=== PATIENT | male | born 1980 | race Caucasian/White ===

== ENCOUNTER → 2019-09-20 14:21 | Outpatient (CLI) | payer MEDICARE, BC, SELFPAY ==
--- NOTE | 2019-09-20 14:21 | MR_ITS ---
PROCEDURE: MR HEAD/BRAIN WO/W CON CLINICAL INDICATION: evaluation of seizures Worsening seizures with headache COMPARISON: CT HEAD/BRAIN WO CON from 08/04/2019 TECHNIQUE: Routine multiplanar multi echo sequences are performed without and with gadolinium enhancement. FINDINGS: No midline shift, mass effect, intracranial hemorrhage, or hydrocephalus. No evidence of acute infarction. No enhancing lesions are evident. The cerebellopontine angles, cerebellum, and brainstem are unremarkable. There is normal rosales-white matter differentiation with no abnormal white matter signal intensity evident. The hippocampal gyri are unremarkable in the temporal horns are symmetric The pituitary, optic chiasm, corpus callosum, and craniocervical junction have an unremarkable appearance. No mastoid effusion or sinus air-fluid level. There is a small left paracentral disc protrusion or disc osteophyte complex at C3-C4 which may be better evaluated with C-spine MRI if clinically warranted. Incidental note is made small area of increased T1 and slight decrease T2 signal in the sphenoid sinus anteriorly and centrally at 1 cm consistent with a complex cyst. IMPRESSION: 1. Essentially negative MRI of the brain. No acute finding. 2. Small left paracentral disc protrusion suspected at C3-C4 Dictated by: Jose Pak MD 09/22/2019 08:25 Electronically signed by Jose Pak MD in [place] 09/22/2019 08:25
== END ==
PROVIDERS: PCP Emergency Medicine; Visit Provider Specialist
DX: R56.9 Unspecified convulsions (principal)
CPT/HCPCS: 70553; A9576

== ENCOUNTER → 2019-09-23 13:06 | Outpatient (POV) | payer MEDICARE, BC, SELFPAY | PROVIDERS: PCP Specialist; Visit Provider Specialist | DX: G40.909 Epilepsy, unspecified, not intractable, without status epilepticus (principal) | CPT/HCPCS: 95816 ==

== ENCOUNTER → 2019-10-10 16:14 | Outpatient (CLI) | payer MEDICARE, BC, SELFPAY ==
--- NOTE | 2019-10-10 16:21 | XR_ITS ---
PROCEDURE: XR CERVICAL SPINE W FLEX/EXT CLINICAL INDICATION: neck pain Posterior neck pain COMPARISON: No exams were available for comparison FINDINGS: Normal alignment. No acute fracture or dislocation. There is mild degenerative disc disease at C3-C4 with minimal foraminal narrowing from uncovertebral hypertrophy at this level on both sides. No evidence of cervical rib. No other significant anomaly. Flexion and extension views show no abnormal subluxation IMPRESSION: Mild degenerative disc disease C3-C4 Dictated by: Jose Pak MD 10/10/2019 16:47 Electronically signed by Jose Pak MD in [place] 10/10/2019 16:47
== END ==
PROVIDERS: PCP Emergency Medicine; Visit Provider Specialist
DX: M47.22 Other spondylosis with radiculopathy, cervical region (principal); M54.2 Cervicalgia
CPT/HCPCS: 72052

== ENCOUNTER 2019-11-01 15:59 | Emergency (ER) | payer MEDICARE, BC, SELFPAY ==
[2019-11-01 16:00] VITALS: BP 124/88; PULSE 97; RESP 18; TEMP 36.8; O2SAT 98; BMI 19.8
[2019-11-01 16:14] VITALS: BMI 21.5
--- NOTE | 2019-11-01 16:16 | CT_ITS ---
PROCEDURE: CT HEAD/BRAIN WO CON CLINICAL INDICATION: seizure COMPARISON: CT HEAD/BRAIN WO CON from 08/04/2019 TECHNIQUE: Axial images obtained. All CT scans at the facility use one or more dose reduction, viz: automated exposure control, ma/kV adjustment per patient size (including targeted exams where dose is matched to indication, i.e. head), or iterative reconstruction technique. FINDINGS: No midline shift, mass effect, intracranial hemorrhage, hydrocephalus, or extra-axial fluid collection is evident. The calvarium has an unremarkable appearance. No mastoid effusion. There is mild mucosal thickening of the sphenoid sinus on the left anteriorly and centrally. IMPRESSION: No acute intracranial finding Dictated by: Jose Pak MD 11/01/2019 16:50 Electronically signed by Jose Pak MD in [facility] 11/01/2019 16:50
[2019-11-01 16:48] LABS: Basophils # 0.1 K/mm3 (0-0.2); Eosinophils # 0.1 K/mm3 (0.0-0.4); Eosinophils % 1.3 % (0.1-12.0); Hemoglobin 16.2 g/dL (14.1-18.0); Lymphocytes # 3.9 K/mm3 (0.7-4.5); Lymphocytes % 36.1 % (10-50); Mean Corpuscular HGB Conc 34.5 g/dL (31.8-35.4); Mean Corpuscular Hemoglobin 31.1 pg (27.0-31.2); Mean Platelet Volume 9.4 fl (7.4-10.4); Monocytes # 0.6 K/mm3 (0.1-1.0); Monocytes % 5.6 % (1.7-9.3); Neutrophils # 6.1 K/mm3 (1.8-7.8); Platelet Count 249 K/mm3 (142-424); Red Blood Count 5.22 M/mm3 (4.60-6.20); Red Cell Distribution Width 13.6 % (11.5-17.5); White Blood Count 10.8 K/mm3 (4.8-10.8)
[2019-11-01 16:50] LABS: Chloride 102 mmol/L (98-107); Potassium 3.7 mmoL/L (3.5-5.1); Sodium 138 mmol/L (136-145)
[2019-11-01 16:53] LABS: Alanine Aminotransferase 20 U/L (12-78); Albumin Level 4.9 g/dl (3.5-5.0); Albumin/Globulin Ratio 1.6 (1.1-1.8); Alkaline Phosphatase 69 U/L (38-126); Anion Gap 13.7 mEq/L (5-15); Aspartate Amino Transferase 24 U/L (17-59); Bilirubin,Total 0.8 mg/dl (0.2-1.3); Blood Urea Nitrogen 7 mg/dl (9-20); Calcium 9.5 mg/dl (8.4-10.2); Carbon Dioxide 26 mmol/L (22.0-30.0); Creatinine Clearance Estimated 122 mL/min (50-200); Estimated Glomerular Filt Rate 109 ml/min (>60); GFR (African American) 132 ML/MIN (>60); Glucose 93 mg/dl (74-100); Total Protein,Serum 7.9 g/dl (6.3-8.2)
[2019-11-01 17:00] VITALS: BP 126/77; PULSE 94; O2SAT 100
--- NOTE | 2019-11-01 17:03 | HMH.EDSEIZ ---
ED Disposition Clinical Impression: Focal seizure Disposition: Home, Self-Care Condition on Discharge: Good Instructions: DI for Seizure (Not Epilepsy/Seizure Disorder), DI for Seizure Disorder -- Adult, DI for Seizure Disorder -- Child Referrals: Jesus Johnson MD [Primary Care Provider] - - Critical Care Critical Care Time: No Attestation: On 11/01/19, the high probability of a clinically significant, sudden or life threatening deterioration of the following system(s) required my full and direct attention, intervention and personal management. The time I documented below is in addition to time spent performing reported procedures but includes the following listed in this critical care notation. Medical Decision Making - Medical Records Medical records reviewed: Yes: I reviewed the patient's medical records. - Claudy Inquiry Pt receiving controlled substance: No Vital Signs: 11/01/19 16:00 Temperature 98.2 F Temperature Source Oral Pulse Rate [Right Radial] 97 H Respiratory Rate 18 Blood Pressure [Right Arm] 124/88 Blood Pressure Mean [Right Arm] 100 Blood Pressure Source [Right Arm] Automatic Cuff Blood Pressure Position [Right Arm] Sitting 02 Sat by Pulse Oximetry 98 Oxygen Delivery Method Room Air - Lab Data Lab results reviewed: Yes: I reviewed the patient's lab results. Lab Results 11/01/19 16:10: WBC 10.8, RBC 5.22, Hgb 16.2, Hct 47.0, MCV 90.0, MCH 31.1, MCHC 34.5, RDW 13.6, Plt Count 249, MPV 9.4, Neut % (Auto) 56.0, Lymph % (Auto) 36.1, [place] % (Auto) 5.6, Eos % (Auto) 1.3, Baso % (Auto) 1.0, Neut # (Auto) 6.1, Lymph # (Auto) 3.9, [place] # (Auto) 0.6, Eos # (Auto) 0.1, Baso # (Auto) 0.1 11/01/19 16:10: Sodium 138, Potassium 3.7, Chloride 102, Carbon Dioxide 26, Anion Gap 13.7, BUN 7 L, Creatinine 0.80, Estimated Creat Clear 122, Estimated GFR 109, Est GFR ( Amer) 132, Glucose 93, Calcium 9.5, Total Bilirubin 0.8, AST 24, ALT 20, Alkaline Phosphatase 69, Total Protein 7.9, Albumin 4.9, Globulin 3.0, Albumin/Globulin Ratio 1.6 Result diagrams: 11/01/19 16:10 11/01/19 16:10 Orders (Tests/Meds): ED MEDICATIONS Generic Name Dose Route Start Last Admin Trade Name David PRN Reason Stop Dose Admin Sodium Chloride 1,000 mls @ 999 mls/hr 11/01/19 16:30 11/01/19 16:46 Sod Chlor 0.9% 1000ml Bag IV 11/01/19 17:30 999 mls/hr .Q1H1M ELINOR Administration - CT Data CT Scan: Head Time Received: 17:[address] Reviewed: Yes: I have viewed the radiologist's interpretation Preliminary Findings: Normal/NAD Medical Decision Narrative: During patient's course in the ED he did not have any other seizure activity. Was uncertain whether or not this patient has pseudoseizures or seizures. Per EMS that when they picked him up he began shaking and as he was walking to the ambulance and said he was having a seizure also when he was placed in the ambulance when they did start an IV in his arm he did stop immediately from shaking and then afterwards he began to have possible pseudoseizures. Patient states he is been all on all different kinds of anticonvulsant medication over the several years and nothing seems to work. He also states that they also talked about possibly doing some sort of surgery may be a brain stimulator as well. Patient CT and labs are within normal limits patient is alert and oriented and is ready for discharge. Seizures HPI - General Chief Complaint: Seizure Stated Complaint: Seizures Time Seen by Provider: 11/01/19 17:03 Mode of Arrival: EMS Source of Information: Patient Limitations: No Limitations Description of Symptoms (Recalled from ER Triage Doc. by RN): PT BROUGHT TO ED BY EMS FOR A REPORTED SEIZURE. PT REPORTS HX OF SEIZURES AND MED CHANGES. EMS STATE THAT THEY DID NOT WITNESS A SEIZURE AND PT HAS ONLY BEEN TWITCHING HIS LT ARM. EMS ADVISES THAT PT WAS ABLE TO HOLD HIS LT ARM STILL FOR IV INSERTION AND WAS ABLE TO WALK HIMSELF TO THE AMBULANCE. - History
--- NOTE | 2019-11-01 17:10 | PC.NURSE ---
Called [facility] per patient request to come pick him up.
[2019-11-01 17:29] VITALS: BP 126/77; PULSE 94; RESP 18; TEMP 36.8; O2SAT 100
== END 2019-11-01 17:31 | disposition home or self-care (01) ==
PROVIDERS: Emergency Provider Family Medicine; PCP Emergency Medicine
DX: R56.9 Unspecified convulsions (principal); F41.9 Anxiety disorder, unspecified; I10 Essential (primary) hypertension; G43.709 Chronic migraine without aura, not intractable, without status migrainosus; Z87.442 Personal history of urinary calculi; F17.210 Nicotine dependence, cigarettes, uncomplicated; Z88.0 Allergy status to penicillin; Z88.8 Allergy status to other drugs, medicaments and biological substances
CPT/HCPCS: 70450; 80053; 85025; 96365; 99283

== ENCOUNTER → 2019-11-04 14:53 | Outpatient (CLI) | payer MEDICARE, BC, SELFPAY ==
--- NOTE | 2019-11-04 14:53 | CT_ITS ---
PROCEDURE: CT SINUS WO CON CLINICAL HISTORY: cyst sinus COMPARISON: No exams were available for comparison TECHNIQUE: Axial images obtained with sagittal and coronal reformats. All CT scans at the facility use one or more dose reduction, viz: automated exposure control, ma/kV adjustment per patient size (including targeted exams where dose is matched to indication, i.e. head), or iterative reconstruction technique. FINDINGS: Bilateral elva bullosa and deviation of the nasal vomer across the midline from right to left is noted with narrowing of the left half of the nasal fossa. There is mild mucosal thickening of the left half of the sphenoid sinus and the nasal turbinates. The ostiomeatal units are intact. Orbits are unremarkable. Mastoid air cells are well aerated. IMPRESSION: Mild sphenoid sinusitis and rhinitis, deviated nasal septum Dictated by: Joseph Simon 11/04/2019 17:20 Electronically signed by Joseph Simon in [place] 11/04/2019 17:20
== END ==
PROVIDERS: PCP Emergency Medicine; Visit Provider Otolaryngology
DX: J34.1 Cyst and mucocele of nose and nasal sinus (principal)
CPT/HCPCS: 70486; 70496; 71260; 80053; 83605; 85025; 93005; 96365; 96374; 96375; 99284; Q9967

== ENCOUNTER 2019-11-04 15:41 | Emergency (ER) | payer MEDICARE, BC, SELFPAY ==
[2019-11-04 15:42] VITALS: BP 139/105; PULSE 103; RESP 16; TEMP 36.2; O2SAT 98; BMI 22.0
--- NOTE | 2019-11-04 16:09 | CT_ITS ---
Procedure: CT ANGIO HEAD CLINICAL HISTORY: seizure COMPARISON: CT HEAD/BRAIN WO CON from 11/01/2019 TECHNIQUE: IV Contrast: 100ml Optiray 350 Axial images obtained with sagittal and coronal reformats. All CT scans at the facility use one or more dose reduction, viz: automated exposure control, ma/kV adjustment per patient size (including targeted exams where dose is matched to indication, i.e. head), or iterative reconstruction technique. FINDINGS: The bilateral internal carotid arteries, vertebral basilar circulation, anterior, middle, and posterior fossa arterial and venous anatomy is unremarkable for occlusion or critical stenosis. IMPRESSION: Negative Dictated by: Joseph Simon 11/04/2019 17:41 Electronically signed by Joseph Simon in [place] 11/04/2019 17:41
--- NOTE | 2019-11-04 16:09 | CT_ITS ---
PROCEDURE: CT CHEST W CON CLINCAL INDICATION: seizure COMPARISON: CT ABDOMEN PELVIS WO CON from 07/04/2019 TECHNIQUE: IV Contrast: 75ml Optiray 350 Axial images obtained with sagittal and coronal reformats. All CT scans at the facility use one or more dose reduction, viz: automated exposure control, ma/kV adjustment per patient size (including targeted exams where dose is matched to indication, i.e. head), or iterative reconstruction technique. FINDINGS: Predominantly, bilateral upper lobe centrilobular emphysematous changes are demonstrated. 3.3 millimeter calcified granuloma is noted in the right upper lobe. There is a 2.6 mm noncalcified nodule in the right lung base. Tracheobronchial tree is intact. Thyroid is unremarkable. There is no significant mediastinal adenopathy. Hiatal hernia is noted. Adrenal glands, soft tissues and bony structures are unremarkable. IMPRESSION: COPD, small noncalcified nodule within the right lung base, small calcified granuloma in the right upper lobe Dictated by: Joseph Simon 11/04/2019 17:37 Electronically signed by Joseph Simon in [place] 11/04/2019 17:37
[2019-11-04 16:30] VITALS: BP 131/93; PULSE 87; RESP 20; O2SAT 98
[2019-11-04 16:48] LABS: Basophils % 0.4 % (0.1-2.0); Eosinophils # 0.1 K/mm3 (0.0-0.4); Eosinophils % 1.2 % (0.1-12.0); Hematocrit 45.3 % (42.0-52.0); Hemoglobin 15.8 g/dL (14.1-18.0); Lymphocytes # 2.6 K/mm3 (0.7-4.5); Lymphocytes % 28.6 % (10-50); Mean Corpuscular Hemoglobin 30.9 pg (27.0-31.2); Mean Corpuscular Volume 88.4 fl (80-94); Mean Platelet Volume 9.1 fl (7.4-10.4); Monocytes # 0.4 K/mm3 (0.1-1.0); Monocytes % 4.4 % (1.7-9.3); Neutrophils # 5.9 K/mm3 (1.8-7.8); Neutrophils % 65.4 % (37.0-80.0); Platelet Count 230 K/mm3 (142-424); Red Blood Count 5.12 M/mm3 (4.60-6.20); Red Cell Distribution Width 13.7 % (11.5-17.5)
--- NOTE | 2019-11-04 16:48 | PC.NURSE ---
PT GONE TO CT
[2019-11-04 16:54] LABS: Chloride 105 mmol/L (98-107); Potassium 4.1 mmoL/L (3.5-5.1); Sodium 137 mmol/L (136-145)
[2019-11-04 16:56] LABS: Blood Urea Nitrogen 11 mg/dl (9-20); Creatinine Clearance Estimated 105 mL/min (50-200); Estimated Glomerular Filt Rate 95 ml/min (>60); GFR (African American) 115 ML/MIN (>60)
[2019-11-04 16:57] LABS: Alanine Aminotransferase 15 U/L (12-78); Albumin Level 4.5 g/dl (3.5-5.0); Albumin/Globulin Ratio 1.7 (1.1-1.8); Alkaline Phosphatase 67 U/L (38-126); Anion Gap 10.1 mEq/L (5-15); Aspartate Amino Transferase 27 U/L (17-59); Bilirubin,Total 0.7 mg/dl (0.2-1.3); Carbon Dioxide 26 mmol/L (22.0-30.0); Globulin 2.7 g/dL (1.3-3.2); Lactic Acid 0.8 mmol/L (0.7-2.1); Total Protein,Serum 7.2 g/dl (6.3-8.2)
[2019-11-04 16:58] LABS: Calcium 9.1 mg/dl (8.4-10.2); Glucose 114 mg/dl (74-100)
--- NOTE | 2019-11-04 17:05 | PC.NURSE ---
pt back from rad
--- NOTE | 2019-11-04 17:13 | ECG_ITS ---
APPROVED REPORT Exam: Resting ECG HR:75 bpm ECG Measurements Heart Rate 75 AXES [place] 128 P 71 QRSd 90 QRS 75 QT 368 T 73 QTc 410 <Conclusion> Normal sinus rhythm Normal ECG Electronically signed by : Merritt Gomez, 11/05/2019 14:06:48
[2019-11-04 17:27] VITALS: BP 133/97; PULSE 81; RESP 18; O2SAT 99
[2019-11-04 17:30] VITALS: BP 123/99; PULSE 84; RESP 18; O2SAT 99
[2019-11-04 18:00] VITALS: BP 126/86; PULSE 88; RESP 18; O2SAT 99
--- NOTE | 2019-11-04 18:10 | HMH.EDSEIZ ---
ED Disposition Clinical Impression: Focal seizure Disposition: Home, Self-Care Condition on Discharge: Good Instructions: DI for Seizure (Not Epilepsy/Seizure Disorder), DI for Seizure Disorder -- Adult, DI for Seizure Disorder -- Child Prescriptions: Primidone [Mysoline 50mg tablet] 150 mg PO HS 30 Days #90 tab Transmission Status: Pending to [id number] Referrals: Jesus Johnson MD [Primary Care Provider] - - Critical Care Critical Care Time: No Attestation: On 11/04/19, the high probability of a clinically significant, sudden or life threatening deterioration of the following system(s) required my full and direct attention, intervention and personal management. The time I documented below is in addition to time spent performing reported procedures but includes the following listed in this critical care notation. Medical Decision Making - Medical Records Medical records reviewed: Yes: I reviewed the patient's medical records. - Claudy Inquiry Pt receiving controlled substance: No Vital Signs: 11/04/19 15:42 11/04/19 16:30 11/04/19 17:27 Temperature 97.2 F L Temperature Source Oral Pulse Rate [Left Radial] 103 H 87 81 Respiratory Rate 16 20 18 Blood Pressure [Right Arm] 139/105 H 131/93 H 133/97 H Blood Pressure Mean [Right Arm] 116 105 109 Blood Pressure Source [Right Arm] Automatic Cuff Automatic Cuff Blood Pressure Position [Right Arm] Sitting Sitting Supine 02 Sat by Pulse Oximetry 98 98 99 Oxygen Delivery Method Room Air Room Air - Lab Data Lab results reviewed: Yes: I reviewed the patient's lab results. Lab Results 11/04/19 16:28: WBC 9.0, RBC 5.12, Hgb 15.8, Hct 45.3, MCV 88.4, MCH 30.9, MCHC 35.0, RDW 13.7, Plt Count 230, MPV 9.1, Neut % (Auto) 65.4, Lymph % (Auto) 28.6, [place] % (Auto) 4.4, Eos % (Auto) 1.2, Baso % (Auto) 0.4, Neut # (Auto) 5.9, Lymph # (Auto) 2.6, [place] # (Auto) 0.4, Eos # (Auto) 0.1, Baso # (Auto) 0.0 11/04/19 16:28: Sodium 137, Potassium 4.1, Chloride 105, Carbon Dioxide 26, Anion Gap 10.1, BUN 11, Creatinine 0.90, Estimated Creat Clear 105, Estimated GFR 95, Est GFR ( Amer) 115, Glucose 114 H, Calcium 9.1, Total Bilirubin 0.7, AST 27, ALT 15, Alkaline Phosphatase 67, Total Protein 7.2, Albumin 4.5, Globulin 2.7, Albumin/Globulin Ratio 1.7 11/04/19 16:28: Lactate 0.8 Result diagrams: 11/04/19 16:28 11/04/19 16:28 Orders (Tests/Meds): ED MEDICATIONS Discontinued Medications Generic Name Dose Route Start Last Admin Trade Name Freq PRN Reason Stop Dose Admin Ioversol 100 ml 11/04/19 17:11 11/04/19 17:12 Rad-Optiray 350 100ml Vial IV 11/04/19 17:12 100 ml ONCE ONE Administration Protocol Sodium Chloride 50 ml 11/04/19 17:11 11/04/19 17:12 Rad-Ns 50ml Vial IV 11/04/19 17:12 50 ml ONCE ONE Administration Sodium Chloride 10 ml 11/04/19 17:11 11/04/19 17:12 Rad-Saline Flush 10ml Syringe IV 11/04/19 17:12 10 ml ONCE ONE Administration ORDERS Category Date Time Status Drug Screen,Urine Stat Lab 11/04/19 16:08 Ordered Urinalysis and Microscopic Stat Lab 11/04/19 16:08 Ordered - CT Data CT Scan: Head, Chest Time Received: 13:00 (CTA of the head) ED CT Reviewed: Yes: I have viewed the radiologist's interpretation Preliminary Findings: Normal/NAD Medical Decision Narrative: Spent quite some time with this patient went through his medication history as far as anticonvulsants and it looks like he has not been on the medication for seizure control that is atypical considering his allergic reactions to previous anticonvulsants. I will go ahead and start patient on primidone and have him follow-up with his neurologist. Seizures HPI - General Chief Complaint: Seizure Stated Complaint: seizure Time Seen by Provider: 11/04/19 18:00 Mode of Arrival: Ambulatory Source of Information: Patient Limitations: No Limitations Description of Symptoms (Recalled from ER Triage Doc. by RN): to ed p
[2019-11-04 18:50] VITALS: BP 126/86; PULSE 80; RESP 16; TEMP 36.7; O2SAT 98
== END 2019-11-04 19:02 | disposition home or self-care (01) ==
PROVIDERS: Emergency Provider Family Medicine; PCP Emergency Medicine
DX: G40.909 Epilepsy, unspecified, not intractable, without status epilepticus (principal); F41.9 Anxiety disorder, unspecified; I10 Essential (primary) hypertension; G43.709 Chronic migraine without aura, not intractable, without status migrainosus; F17.210 Nicotine dependence, cigarettes, uncomplicated; Z79.899 Other long term (current) drug therapy
CPT/HCPCS: 70496; 71260; 80053; 83605; 85025; 93005; 96365; 96374; 96375; 99284; Q9967

== ENCOUNTER 2019-12-07 13:25 | Emergency (ER) | payer MEDICARE, BC, SELFPAY ==
[2019-12-07 13:01] VITALS: BP 180/104; PULSE 113; RESP 18; TEMP 36.9; O2SAT 98; BMI 22.8
--- NOTE | 2019-12-07 13:01 | HMH.EDGENADL ---
ED Disposition Clinical Impression: Seizure disorder Disposition: Xfer Short-Term Hosp Condition on Discharge: Fair Referrals: Provider,Referral, [Referring] - Forms: Transfer Record - ED - Critical Care Critical Care Time: No Attestation: On , the high probability of a clinically significant, sudden or life threatening deterioration of the following system(s) required my full and direct attention, intervention and personal management. The time I documented below is in addition to time spent performing reported procedures but includes the following listed in this critical care notation. Medical Decision Making - Medical Records Medical records reviewed: Yes: I reviewed the patient's medical records. MR Comment: Reviewed prior test results related to seizures. Reviewed Dr. Zabala's most recent office note from 11/11/2019. - Claudy Inquiry Pt receiving controlled substance: Yes Claudy was queried for this patient: No Reason not queried -: Emergent pt cond-no time Risks and benefits of using a controlled substance: were not discussed with pt by me Vital Signs: 12/07/19 13:01 12/07/19 13:51 Temperature 98.5 F Temperature Source Oral Pulse Rate [Right] 113 H 93 H Respiratory Rate 18 18 Blood Pressure [Right Arm] 180/104 H 125/94 H Blood Pressure Mean [Right Arm] 129 104 02 Sat by Pulse Oximetry 98 99 - Lab Data Lab results reviewed: Yes: I reviewed the patient's lab results. Lab Results 12/07/19 13:13: WBC 14.4 H, RBC 5.16, Hgb 16.0, Hct 46.5, MCV 90.0, MCH 31.0, MCHC 34.4, RDW 13.9, Plt Count 259, MPV 9.0, Neut % (Auto) 72.9, Lymph % (Auto) 21.6, [place] % (Auto) 4.1, Eos % (Auto) 0.8, Baso % (Auto) 0.6, Neut # (Auto) 10.5 H, Lymph # (Auto) 3.1, [place] # (Auto) 0.6, Eos # (Auto) 0.1, Baso # (Auto) 0.1 12/07/19 13:13: Sodium 138, Potassium 4.3, Chloride 101, Carbon Dioxide 28, Anion Gap 13.3, BUN 7 L, Creatinine 0.80, Estimated Creat Clear 120, Estimated GFR 108, Est GFR ( Amer) 131, Glucose 99, Calcium 9.3, Total Bilirubin 0.5, AST 26, ALT 20, Alkaline Phosphatase 55, Total Protein 7.1, Albumin 4.4, Globulin 2.7, Albumin/Globulin Ratio 1.6 12/07/19 13:13: Plasma/Serum Alcohol < 10 12/07/19 13:17: Urine Color Yellow, Urine Appearance Clear, Urine pH 8.5, Ur Specific Media 1.020, Urine Protein Negative, Urine Glucose (UA) Negative, Urine Ketones Negative, Urine Blood Negative, Urine Nitrate Negative, Urine Bilirubin Negative, Urine Urobilinogen 0.2, Ur Leukocyte Esterase Negative, Urine RBC None, Urine WBC None, Ur Squamous Epith Cells None, Amorphous Sediment 1+, Urine Bacteria None 12/07/19 13:17: Urine Opiates Screen Negative, Urine Methadone Screen Negative, Ur Barbituates Screen Negative, Ur Phencyclidine Scrn Negative, Ur Amphetamines Screen Negative, U Benzodiazepines Scrn Negative, Urine Cocaine Screen Negative, U Marijuana (THC) Screen Negative Result diagrams: 12/07/19 13:13 12/07/19 13:13 Orders (Tests/Meds): ED MEDICATIONS Generic Name Dose Route Start Last Admin Trade Name Freq PRN Reason Stop Dose Admin Sodium Chloride 10 ml 12/07/19 13:37 Sodium Chloride 0.9% 10ml Vial IV 01/06/20 13:36 NEEDED PRN to Dilute Lorazepam inj Sodium Chloride 10 ml 12/07/19 14:10 Sodium Chloride 0.9% 10ml Vial IV 01/06/20 14:09 NEEDED PRN to Dilute Lorazepam inj Discontinued Medications Generic Name Dose Route Start Last Admin Trade Name Freq PRN Reason Stop Dose Admin Sodium Chloride 1,000 mls @ 999 mls/hr 12/07/19 13:15 12/07/19 13:14 Sod Chlor 0.9% 1000ml Bag IV 12/07/19 14:15 999 mls/hr .Q1H1M ELINOR Administration Lorazepam 1 mg 12/07/19 13:37 12/07/19 13:40 Ativan 2mg/Ml Vial IV 12/07/19 13:38 1 mg ONCE ONE Administration Lorazepam 1 mg 12/07/19 14:10 12/07/19 14:14 Ativan 2mg/Ml Vial IV 12/07/19 14:11 1 mg ONCE ONE Administration ORDERS Category Date Time Status Respiratory Panel (COVID), PCR Stat Lab 12/07/19 1
--- NOTE | 2019-12-07 13:07 | CT_ITS ---
PROCEDURE: CT HEAD/BRAIN WO CON Patient Age:39Y CLINICAL INDICATION: seizure/seizure like acitivity Patient started new seizure medication but does not think it is helping. Denies head trauma COMPARISON: Previous CT head 11/01/2019 and August 03 TECHNIQUE: No IV contrast. Standard axial images were obtained. All CT scans at the facility use one or more dose reduction, viz: automated exposure control, ma/kV adjustment per patient size (including targeted exams where dose is matched to indication, i.e. head), or iterative reconstruction technique. FINDINGS: No acute intracranial findings. But no change since prior CT head 11/01/2019 No intracranial hemorrhage. No territorial infarct No hydrocephalus.The ventricles and basal cisterns appear clear and satisfactory. No mass or midline shift nor mass effect. No subdural or extra-axial fluid collection is evident. Posterior fossa unremarkable. Skull intact- calvarium unremarkable appearance. Nomastoid effusions. Mastoid air cells are well developed and clear. Middle ear clear. IAC's symmetric. . Visualized portions of the paranasal sinuses and orbits unremarkable. IMPRESSION: No acute intracranial findings . Stable negative CT head; with no change since 11/01/2019 Dictated by: Thai Hager MD 12/07/2019 13:49 Electronically signed by Thai Hager MD in [place] 12/07/2019 13:49
[2019-12-07 13:18] LABS: Basophils # 0.1 K/mm3 (0-0.2); Basophils % 0.6 % (0.1-2.0); Eosinophils # 0.1 K/mm3 (0.0-0.4); Eosinophils % 0.8 % (0.1-12.0); Hematocrit 46.5 % (42.0-52.0); Lymphocytes # 3.1 K/mm3 (0.7-4.5); Lymphocytes % 21.6 % (10-50); Mean Corpuscular HGB Conc 34.4 g/dL (31.8-35.4); Monocytes # 0.6 K/mm3 (0.1-1.0); Monocytes % 4.1 % (1.7-9.3); Neutrophils # 10.5 K/mm3 (1.8-7.8); Neutrophils % 72.9 % (37.0-80.0); Platelet Count 259 K/mm3 (142-424); Red Blood Count 5.16 M/mm3 (4.60-6.20); Red Cell Distribution Width 13.9 % (11.5-17.5); White Blood Count 14.4 K/mm3 (4.8-10.8)
--- NOTE | 2019-12-07 13:19 | PC.NURSE ---
Pt to CT
[2019-12-07 13:23] LABS: Appearance,Urine CLEAR (Clear); Bilirubin,Urine Negative (Negative); Blood, Urine Negative (Negative); Color,Urine YELLOW (Yellow); Glucose,Urine (UA) Negative (Negative); Ketones,Urine Negative (Negative); Leukocyte Esterase,Urine Negative (Negative); Microscopic, Urine URINE MICROSCOPIC (MICROSCOPIC); Nitrate,Urine Negative (Negative); PH,Urine 8.5 (5.0-8.5); Protein,Urine Negative (Negative); Urobilinogen,Urine 0.2 EU/dl (0.2)
[2019-12-07 13:24] LABS: Chloride 101 mmol/L (98-107); Potassium 4.3 mmoL/L (3.5-5.1); Sodium 138 mmol/L (136-145)
[2019-12-07 13:27] LABS: Alanine Aminotransferase 20 U/L (12-78); Albumin Level 4.4 g/dl (3.5-5.0); Albumin/Globulin Ratio 1.6 (1.1-1.8); Alkaline Phosphatase 55 U/L (38-126); Anion Gap 13.3 mEq/L (5-15); Aspartate Amino Transferase 26 U/L (17-59); Bilirubin,Total 0.5 mg/dl (0.2-1.3); Blood Urea Nitrogen 7 mg/dl (9-20); Calcium 9.3 mg/dl (8.4-10.2); Carbon Dioxide 28 mmol/L (22.0-30.0); Creatinine Clearance Estimated 120 mL/min (50-200); Estimated Glomerular Filt Rate 108 ml/min (>60); Ethyl Alcohol < 10 mg/dl (0-10); GFR (African American) 131 ML/MIN (>60); Globulin 2.7 g/dL (1.3-3.2); Glucose 99 mg/dl (74-100); Total Protein,Serum 7.1 g/dl (6.3-8.2)
[2019-12-07 13:35] LABS: Amphetamine/Metha Screen,Urine Negative ng/ml (<1000)
[2019-12-07 13:36] LABS: Barbiturates Screen,Urine Negative ng/ml (<200)
--- NOTE | 2019-12-07 13:36 | PC.NURSE ---
Paged Dr Zabala at this time
[2019-12-07 13:37] LABS: Benzodiazepines Screen,Urine Negative ng/ml (<200); Methadone Screen,Urine Negative ng/ml (<300)
[2019-12-07 13:38] LABS: Cannabinoid Screen,Urine Negative ng/ml (<50)
[2019-12-07 13:39] LABS: Cocaine Screen,Urine Negative ng/ml (<300); Opiate Screen,Urine Negative ng/ml (<300)
[2019-12-07 13:40] LABS: Phencyclidine Screen,Urine Negative ng/ml (<25)
--- NOTE | 2019-12-07 13:43 | PC.NURSE ---
Physical Security Manager stated that Dr Nguyen does not take call, attempting to call pts neurologist at [facility]
[2019-12-07 13:47] LABS: Amorphous Sediment,Urine 1+ /lpf
--- NOTE | 2019-12-07 13:50 | PC.NURSE ---
Dr. Simons Speaking with Dr Paige.
[2019-12-07 13:51] VITALS: BP 125/94; PULSE 93; RESP 18; O2SAT 99
--- NOTE | 2019-12-07 13:56 | PC.NURSE ---
Notified transfer center of pt agreeing to be admitted, notified the transfer center and stated the hospitalist would call us back.
--- NOTE | 2019-12-07 14:23 | PC.NURSE ---
speaking to Hospitalist from [facility]
[2019-12-07 14:53] LABS: Adenovirus,PCR Not Detected (NotDetected); Bordetella Pertussis Not Detected (NotDetected); Chlamydophila Pneumoniae, PCR Not Detected (NotDetected); Coronavirus 19, PCR Not Detected (NotDetected); Coronavirus 229E Not Detected (NotDetected); Coronavirus NL63 Not Detected (NotDetected); Coronavirus OC43 Not Detected (NotDetected); Coronovirus HKU1,PCR Not Detected (NotDetected); Human Metapneumovirus Not Detected (NotDetected); Influenza A, PCR Not Detected (NotDetected); Influenza AH1, 2009 Not Detected (NotDetected); Influenza AH1, PCR Not Detected (NotDetected); Influenza AH3,PCR Not Detected (NotDetected); Influenza B, PCR Not Detected (NotDetected); Mycoplasma Pneumoniae, PCR Not Detected (NotDected); Parainfluenza 1, PCR Not Detected (NotDetected); Parainfluenza 2, PCR Not Detected (NotDetected); Parainfluenza 3, PCR Not Detected (NotDetected); Parainfluenza 4, PCR Not Detected (NotDetected); Respiratory Syncytial Virus Not Detected (NotDetected); Rhinovirus/Enterovirus Not Detected (NotDetected)
[2019-12-07 15:01] VITALS: BP 110/87; PULSE 87; RESP 18
--- NOTE | 2019-12-07 15:43 | PC.NURSE ---
Report given to Pearl Alcocer RN at [facility]
--- NOTE | 2019-12-07 15:44 | PC.NURSE ---
[facility] notified of ALS transfer
--- NOTE | 2019-12-07 16:11 | PC.NURSE ---
Pt leaving with [facility] at this time, report given to Aaron Tomlinson
[2019-12-07 16:12] VITALS: BP 118/68; PULSE 85; RESP 14; TEMP 36.6; O2SAT 100
[2020-01-13 13:19] LABS: POC Glucose,Bedside 109 (70-110)
== END 2019-12-07 16:16 | disposition short-term general hospital (02) ==
PROVIDERS: Emergency Provider Emergency Medicine; PCP Emergency Medicine
DX: G40.909 Epilepsy, unspecified, not intractable, without status epilepticus (principal); Z03.818 Encounter for observation for suspected exposure to other biological agents ruled out; F41.9 Anxiety disorder, unspecified; K21.9 Gastro-esophageal reflux disease without esophagitis; I10 Essential (primary) hypertension; Z87.442 Personal history of urinary calculi; G43.709 Chronic migraine without aura, not intractable, without status migrainosus; F17.210 Nicotine dependence, cigarettes, uncomplicated; Z79.899 Other long term (current) drug therapy
CPT/HCPCS: 70450; 80053; 80305; 81001; 82962; 85025; 87581; 87633; 87798; 96365; 96375; 96376; 99284

== ENCOUNTER 2020-01-30 15:24 | Emergency (ER) | payer MEDICARE, BC, SELFPAY ==
[2020-01-30 15:32] VITALS: BP 162/95; PULSE 85; RESP 16; TEMP 36.9; O2SAT 98; BMI 22.8
--- NOTE | 2020-01-30 15:33 | HMH.EDGENADL ---
ED Disposition Clinical Impression: Blurry vision, Weakness of voice, Cervical radiculopathy Disposition: Home, Self-Care Condition on Discharge: Good Additional Instructions: Call Dr. Zabala and your primary care provider tomorrow to make appointments to be seen for follow-up. Return to the emergency department if symptoms worsen. Referrals: Jesus Johnson MD [Primary Care Provider] - - Critical Care Critical Care Time: No Attestation: On 01/30/20, the high probability of a clinically significant, sudden or life threatening deterioration of the following system(s) required my full and direct attention, intervention and personal management. The time I documented below is in addition to time spent performing reported procedures but includes the following listed in this critical care notation. Medical Decision Making - Medical Records Medical records reviewed: Yes: I reviewed the patient's medical records. MR Comment: Results reviewed: Head CT 12/07/2019, had a CTA 11/04/2019, chest and sinuses CT 11/04/2019, head CT 11/01/2019, spine x-rays with flexion and extension 10/10/2019, brain MRI 09/20/2019, head CT 08/04/2019, cervical spine CTs 08/04/2019. Also reviewed [facility]. [facility] documented in that note with diagnosis of nonepileptic seizures, counseling recommended. - Claudy Inquiry Pt receiving controlled substance: No Vital Signs: 01/30/20 15:32 01/30/20 19:46 Temperature 98.5 F Temperature Source Oral Pulse Rate [Radial] 85 72 Respiratory Rate 16 18 Blood Pressure [Right Arm] 162/95 H 136/93 H Blood Pressure Mean [Right Arm] 117 107 Blood Pressure Position [Right Arm] Sitting 02 Sat by Pulse Oximetry 98 100 Oxygen Delivery Method Room Air Room Air - Lab Data Lab Results 01/30/20 16:05: WBC 11.9 H, RBC 5.25, Hgb 16.2, Hct 48.2, MCV 91.9, MCH 30.8, MCHC 33.5, RDW 13.7, Plt Count 316, MPV 8.0, Neut % (Auto) 62.4, Lymph % (Auto) 29.7, [place] % (Auto) 5.6, Eos % (Auto) 1.8, Baso % (Auto) 0.6, Neut # (Auto) 7.4, Lymph # (Auto) 3.5, [place] # (Auto) 0.7, Eos # (Auto) 0.2, Baso # (Auto) 0.1 01/30/20 16:05: Sodium 140, Potassium 4.8, Chloride 101, Carbon Dioxide 31 H, Anion Gap 12.8, BUN 16, Creatinine 1.00, Estimated Creat Clear 96, Estimated GFR 84, Est GFR ( Amer) 101, Glucose 112 H, Calcium 10.0, Total Bilirubin 0.4, AST 30, ALT 25, Alkaline Phosphatase 74, Total Protein 7.4, Albumin 4.6, Globulin 2.8, Albumin/Globulin Ratio 1.6 Result diagrams: 01/30/20 16:05 01/30/20 16:05 Orders (Tests/Meds): ED MEDICATIONS Discontinued Medications Generic Name Dose Route Start Last Admin Trade Name Freq PRN Reason Stop Dose Admin Ioversol 100 ml 01/30/20 16:46 01/30/20 16:48 Rad-Optiray 350 100ml Vial IV 01/30/20 16:47 100 ml ONCE ONE Administration Protocol Ketorolac Tromethamine 30 mg 01/30/20 16:06 01/30/20 16:07 Toradol 30mg/Ml Vial IV 01/30/20 16:07 30 mg ONCE ONE Administration Sodium Chloride 50 ml 01/30/20 16:46 01/30/20 16:48 Rad-Ns 50ml Vial IV 01/30/20 16:47 50 ml ONCE ONE Administration Sodium Chloride 10 ml 01/30/20 16:46 01/30/20 16:48 Rad-Saline Flush 10ml Syringe IV 01/30/20 16:47 10 ml ONCE ONE Administration ORDERS Category Date Time Status CT angio head Stat Cat Scan 01/30/20 15:[address] angio neck Stat Cat Scan 01/30/20 15:[address] cervical spine wo con Stat Cat Scan 01/30/20 15:53 Taken - CT Data CT Scan: Head, C-Spine, Other (CT angiogram head and neck) Time Received: 17:35 ([facility] fax) ED CT Reviewed: Yes: I have viewed the radiologist's interpretation Findings Narrative: Cervical spine: Mild degenerative changes at multiple levels. No evidence of acute fracture. CT angiogram head: Evaluation of intracranial arteries is suboptimal. Flow-limiting pathology cannot be excluded. No acute intracranial hemorrhage or acute territorial type infarct on noncontrast head CT images. CT angiogr
--- NOTE | 2020-01-30 15:40 | PC.NURSE ---
VISUAL ACUITY RT EYE 20/40 -2, LT EYE 20/50 WITHOUT CORRECTION
--- NOTE | 2020-01-30 15:50 | CT_ITS ---
Procedure: CT ANGIO NECK CLINICAL HISTORY: visual, speech, swallowing change COMPARISON: No exams were available for comparison TECHNIQUE: IV Contrast: 200ml Optiray 350 Axial images obtained with sagittal and coronal reformats. All CT scans at the facility use one or more dose reduction, viz: automated exposure control, ma/kV adjustment per patient size (including targeted exams where dose is matched to indication, i.e. head), or iterative reconstruction technique. On initial exam, the patient moved upon starting the exam. The study was then repeated. FINDINGS: Aortic arch: Unremarkable. Great vessels: Unremarkable. Right carotid: Unremarkable common and internal carotid artery. No stenosis dissection or aneurysm. Left carotid: No stenosis, dissection, or aneurysm. The left internal carotid is somewhat smaller than the right side which is of questionable clinical significance. Vertebrals: Unremarkable. The left vertebral is dominant. The right vertebral is somewhat smaller than the left side. No stenosis or dissection evident. CTA brain: No aneurysm, arteriovenous malformation, or major intracranial occlusive process is evident. No obvious sinus thrombosis. There are centrilobular emphysematous changes in the upper lobes. There are few scattered small cervical lymph nodes. No enhancing intracranial lesions. No midline shift or mass effect. IMPRESSION: 1. No significant carotid stenosis or dissection. There is diffuse small caliber of the left internal carotid and right vertebral artery 2. No intracranial aneurysm or AVM or major intracranial occlusive process. Dictated by: Jose Pak MD 01/31/2020 09:01 Jose Pak MD in [place] 01/31/2020 09:01
--- NOTE | 2020-01-30 15:53 | CT_ITS ---
PROCEDURE: CT CERVICAL SPINE WO CON CLINICAL INDICATION: cervical radiculopathy Neck injury with pain, contusion/abrasion or hematoma, cervical sprain/strain, left-sided neck pain COMPARISON: CT CT CERVICAL SPINE WO CON from 08/04/2019 TECHNIQUE: Axial images obtained with sagittal and coronal reformats. All CT scans at the facility use one or more dose reduction, viz: automated exposure control, ma/kV adjustment per patient size (including targeted exams where dose is matched to indication, i.e. head), or iterative reconstruction technique. Axial spiral CT scanning performed of the cervical spine beginning at the base of the skull and continuing to the upper T-spine. 3-D multiplanar reconstruction with 3-D manipulation of volumetric data set in image rendering was completed by the radiologist and/or technologist with the supervision of the radiologist on independent workstation. FINDINGS: There is normal alignment. No acute fracture or dislocation is evident. No lytic or blastic change. There is degenerative disc disease at C3-C4 with mild uncovertebral hypertrophy along with mild bilateral lateral recess and foraminal narrowing. Lung apices are clear. IMPRESSION: No acute fracture with cervical spondylosis Dictated by: Jose Pak MD 01/31/2020 06:00 Jose Pak MD in [place] 01/31/2020 06:00
[2020-01-30 16:09] LABS: Basophils # 0.1 K/mm3 (0-0.2); Basophils % 0.6 % (0.1-2.0); Eosinophils # 0.2 K/mm3 (0.0-0.4); Eosinophils % 1.8 % (0.1-12.0); Hematocrit 48.2 % (42.0-52.0); Hemoglobin 16.2 g/dL (14.1-18.0); Lymphocytes # 3.5 K/mm3 (0.7-4.5); Lymphocytes % 29.7 % (10-50); Mean Corpuscular HGB Conc 33.5 g/dL (31.8-35.4); Mean Corpuscular Hemoglobin 30.8 pg (27.0-31.2); Mean Corpuscular Volume 91.9 fl (80-94); Monocytes # 0.7 K/mm3 (0.1-1.0); Monocytes % 5.6 % (1.7-9.3); Neutrophils # 7.4 K/mm3 (1.8-7.8); Neutrophils % 62.4 % (37.0-80.0); Platelet Count 316 K/mm3 (142-424); Red Blood Count 5.25 M/mm3 (4.60-6.20); Red Cell Distribution Width 13.7 % (11.5-17.5); White Blood Count 11.9 K/mm3 (4.8-10.8)
[2020-01-30 16:16] LABS: Chloride 101 mmol/L (98-107); Potassium 4.8 mmoL/L (3.5-5.1); Sodium 140 mmol/L (136-145)
[2020-01-30 16:18] LABS: Alanine Aminotransferase 25 U/L (12-78); Aspartate Amino Transferase 30 U/L (17-59); Blood Urea Nitrogen 16 mg/dl (9-20); Creatinine Clearance Estimated 96 mL/min (50-200); Estimated Glomerular Filt Rate 84 ml/min (>60); GFR (African American) 101 ML/MIN (>60)
[2020-01-30 16:19] LABS: Albumin Level 4.6 g/dl (3.5-5.0); Albumin/Globulin Ratio 1.6 (1.1-1.8); Alkaline Phosphatase 74 U/L (38-126); Anion Gap 12.8 mEq/L (5-15); Bilirubin,Total 0.4 mg/dl (0.2-1.3); Carbon Dioxide 31 mmol/L (22.0-30.0); Globulin 2.8 g/dL (1.3-3.2); Glucose 112 mg/dl (74-100); Total Protein,Serum 7.4 g/dl (6.3-8.2)
[2020-01-30 19:46] VITALS: BP 136/93; PULSE 72; RESP 18; O2SAT 100
[2020-01-30 20:12] VITALS: BP 149/105; PULSE 70; RESP 16; TEMP 36.9; O2SAT 100
== END 2020-01-30 20:14 | disposition home or self-care (01) ==
PROVIDERS: Emergency Provider Emergency Medicine; PCP Emergency Medicine
DX: M54.12 Radiculopathy, cervical region (principal); R49.8 Other voice and resonance disorders; K21.9 Gastro-esophageal reflux disease without esophagitis; I10 Essential (primary) hypertension; G40.909 Epilepsy, unspecified, not intractable, without status epilepticus; G43.709 Chronic migraine without aura, not intractable, without status migrainosus; F17.210 Nicotine dependence, cigarettes, uncomplicated; Z88.0 Allergy status to penicillin; Z88.8 Allergy status to other drugs, medicaments and biological substances; Z79.899 Other long term (current) drug therapy
CPT/HCPCS: 70496; 70498; 72125; 80053; 85025; 96374; 99283; Q9967

== ENCOUNTER 2020-02-28 08:00 | Outpatient (RCR) | payer MEDICARE, BC, SELFPAY ==
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
== END 2020-02-28 08:05 | disposition home or self-care (01) ==
LOC: PT 08:00
PROVIDERS: Visit Provider Nurse Practitioner Family
DX: M54.2 Cervicalgia (principal)
CPT/HCPCS: 97010; 97014; 97035; 97110; 97163; G0283

== ENCOUNTER 2020-05-13 16:53 | Emergency (ER) | payer MEDICARE, BC, SELFPAY ==
[2020-05-13 16:54] VITALS: BP 142/102; PULSE 97; RESP 20; TEMP 36.7; O2SAT 99; BMI 22.1
--- NOTE | 2020-05-13 17:38 | HMH.EDGENADL ---
ED Disposition Clinical Impression: Neck pain Disposition: Home, Self-Care Condition on Discharge: Fair Instructions: DI for Chronic Pain -- Adult Prescriptions: methylPREDNISolone [Medrol 4mg tab] 4 mg PO DIRECTED #21 tab Prescription Printed Ketorolac Tromethamine [Toradol 10mg tablet] 10 mg PO Q4H 5 Days #30 tab Prescription Printed Diclofenac Sodium [Voltaren 100gm Topical Gel] 1 applicatio TP Q4-6H PRN #100 gm PRN Reason: Moderate Pain Prescription Printed Referrals: Timothy Mcgraw MD [Primary Care Provider] - - Critical Care Critical Care Time: No Attestation: On 05/13/20, the high probability of a clinically significant, sudden or life threatening deterioration of the following system(s) required my full and direct attention, intervention and personal management. The time I documented below is in addition to time spent performing reported procedures but includes the following listed in this critical care notation. Medical Decision Making - Medical Records Medical records reviewed: Yes: I reviewed the patient's medical records. MR Comment: This is a 39-year-old male here with a complaint of neck pain worse since this morning; review of the chart shows that he has been extensively worked up with mostly negative findings; denies any trauma he says that this has been going on for almost 1 year; he recently visited his PCP and was prescribed an increase in his gabapentin. Has been given shots of Toradol and Depo-Medrol and he is also been given Flexeril plan is to discharge him home with a soft collar as well as anti-inflammatory medication and steroid Dosepak I have reviewed patient's previous cervical spine CT done on 01/31/2020 and it shows no acute findings also a CT angiogram of the cervical spine was done and this shows no acute findings a CT head was done on 12/07/2019 and shows no acute findings x-ray of the cervical spine with flexion and extension have also been done and reviewed and shows no acute changes on 11/01/2027 CT of the head was done and it showed no acute changes and on 08/04/[address] of the cervical spine was done and it shows no acute changes labs will have also been done during this. And they showed no acute changes patient does have a follow-up with specialist will advise him to keep that appointment - Claudy Inquiry Pt receiving controlled substance: No Claudy was queried for this patient: No Vital Signs: 05/13/20 16:54 05/13/20 18:08 Temperature 98.0 F Temperature Source Oral Pulse Rate [Left Radial] 97 H 89 Respiratory Rate 20 Blood Pressure [Right Arm] 142/102 H 133/80 Blood Pressure Mean [Right Arm] 115 97 Blood Pressure Source [Right Arm] Automatic Cuff Automatic Cuff Blood Pressure Position [Right Arm] Sitting Sitting 02 Sat by Pulse Oximetry 99 99 Oxygen Delivery Method Room Air Room Air Orders (Tests/Meds): ED MEDICATIONS Discontinued Medications Generic Name Dose Route Start Last Admin Trade Name Freq PRN Reason Stop Dose Admin Cyclobenzaprine HCl 10 mg 05/13/20 17:37 05/13/20 17:45 Cyclobenzaprine 10mg Tablet PO 05/13/20 17:38 10 mg ONCE ONE Administration Ketorolac Tromethamine 60 mg 05/13/20 17:36 05/13/20 17:50 Ketorolac 60mg/2ml Vial IM 05/13/20 17:37 60 mg ONCE ONE Administration Methylprednisolone Acetate 80 mg 05/13/20 17:36 05/13/20 17:50 Methylprednisolone Acetate 80mg/Ml Vial IM 05/13/20 17:37 80 mg ONCE ONE Administration General Adult HPI - General Chief complaint: PAIN Stated complaint: neck pain Time Seen by Provider: 05/13/20 17:25 Mode of Arrival: Wheelchair Source of Information: Patient, Spouse Limitations: No Limitations Description of Symptoms (Recalled from ER Triage Doc. by RN): c/o neck and back pain. Pt is unable to turn his head without using his whole body and states this is to painful to touch his chin to his chest. Denies any recent injury. States he was seen by his PCP
[2020-05-13 18:08] VITALS: BP 133/80; PULSE 89; O2SAT 99
[2020-05-13 19:21] VITALS: BP 134/89; PULSE 83; RESP 16; TEMP 36.7; O2SAT 98
== END 2020-05-13 19:25 | disposition home or self-care (01) ==
PROVIDERS: Emergency Provider Emergency Medicine; PCP Family Medicine
DX: M54.2 Cervicalgia (principal); E11.9 Type 2 diabetes mellitus without complications; K21.9 Gastro-esophageal reflux disease without esophagitis; I10 Essential (primary) hypertension; Z87.442 Personal history of urinary calculi; F17.210 Nicotine dependence, cigarettes, uncomplicated; Z88.0 Allergy status to penicillin; Z88.8 Allergy status to other drugs, medicaments and biological substances; Z79.899 Other long term (current) drug therapy
CPT/HCPCS: 96372; 99282; J1040

== ENCOUNTER 2020-05-29 10:44 | Emergency (ER) | payer MEDICARE, BC, SELFPAY ==
[2020-05-29 10:44] VITALS: BP 113/77; BP 162/104; PULSE 113; PULSE 86; RESP 20; TEMP 36.7; O2SAT 100; O2SAT 98; BMI 22.8
--- NOTE | 2020-05-29 11:02 | HMH.EDGENADL ---
ED Disposition Clinical Impression: Chronic cervical pain Disposition: Home, Self-Care Condition on Discharge: Good Referrals: Timothy Mcgraw MD [Primary Care Provider] - 3 days Time of Disposition: 14:01 - Critical Care Critical Care Time: No Attestation: On 05/29/20, the high probability of a clinically significant, sudden or life threatening deterioration of the following system(s) required my full and direct attention, intervention and personal management. The time I documented below is in addition to time spent performing reported procedures but includes the following listed in this critical care notation. Medical Decision Making - Medical Records Medical records reviewed: Yes: I reviewed the patient's medical records. - Claudy Inquiry Pt receiving controlled substance: No Vital Signs: 05/29/20 10:44 05/29/20 11:31 05/29/20 12:00 Temperature 98.0 F Temperature Source Oral Pulse Rate [Left Radial] 86 98 H 101 H Respiratory Rate 20 Blood Pressure [Right Arm] 113/77 139/79 135/105 H Blood Pressure Mean [Right Arm] 89 99 115 Blood Pressure Source [Right Arm] Automatic Cuff Automatic Cuff Automatic Cuff Blood Pressure Position [Right Arm] Sitting Sitting Sitting 02 Sat by Pulse Oximetry 100 98 99 Oxygen Delivery Method Room Air Room Air Room Air - Lab Data Lab Results 05/29/20 11:47: Sodium 137, Potassium 4.4, Chloride 100, Carbon Dioxide 30, Anion Gap 11.4, BUN 13, Creatinine 0.90, Estimated Creat Clear 111, Estimated GFR 94, Est GFR ( Amer) 114, Glucose 96, Calcium 10.0, Total Bilirubin 0.8, AST 31, ALT 46, Alkaline Phosphatase 69, Total Protein 7.8, Albumin 4.7, Globulin 3.1, Albumin/Globulin Ratio 1.5 05/29/20 11:47: Magnesium 2.0 05/29/20 12:17: Urine Opiates Screen Positive H, Urine Methadone Screen Negative, Ur Barbituates Screen Negative, Ur Phencyclidine Scrn Negative, Ur Amphetamines Screen Negative, U Benzodiazepines Scrn Negative, Urine Cocaine Screen Negative, U Marijuana (THC) Screen Negative Result diagrams: 05/29/20 11:47 Medical Decision Narrative: 39yo M evaluated for chronic neck pain and worsening tremor. Patient is in no acute distress on initial evaluation. Patient story changes repeatedly in regard to his timeline and severity of symptoms. Patient's presents later and states he had a seizure about 2 weeks ago but it was minor and he did not seek care for it. Neither the patient nor his are aware what scans have been completed recently. And they are concerned about worsening cervical pathology. And walking through the emergency department to see other patients, noted the patient was resting on his gurney without tremor. When returning to the patient's room to update him regarding his laboratory studies, the patient's tremor had returned when I entered the room. Again walking around the ER to see other patients, noted the patient did not have a tremor at rest. Patient is also left-handed and note smoking stains to his left hands but not his right. Reports he continues to smoke nearly a pack per day. This would be difficult with a severe tremor. Patient becomes agitated and feels that no one wants to help him and no one is willing to further work-up his condition. I reviewed patient's documentation through all of 2019. I was able to provide the patient a list of all of his medical imaging through 2019. Upon reentering the room and providing the patient a list of his studies, I noted that the patient's tremors had stopped to which he said yes but my feet hurt. Informed patient there was not an additional imaging study that I could do that has not already been completed. Instructed the patient to take his medication as directed and follow-up with his PCP. Also reminded him to arrive early for his study on Monday. General Adult HPI - General Stated complaint: tremors Time Seen by Provider: 05/29/20 11:02 - History of Present Illness HPI narrative: 39yo M
[2020-05-29 11:31] VITALS: BP 139/79; PULSE 98; O2SAT 98
[2020-05-29 12:00] VITALS: BP 135/105; PULSE 101; O2SAT 99
--- NOTE | 2020-05-29 12:06 | PC.NURSE ---
Patient taken to restroom
[2020-05-29 12:33] LABS: Chloride 100 mmol/L (98-107); Sodium 137 mmol/L (136-145)
[2020-05-29 12:34] LABS: Potassium 4.4 mmoL/L (3.5-5.1)
[2020-05-29 12:36] LABS: Alanine Aminotransferase 46 U/L (12-78); Albumin Level 4.7 g/dl (3.5-5.0); Albumin/Globulin Ratio 1.5 (1.1-1.8); Alkaline Phosphatase 69 U/L (38-126); Anion Gap 11.4 mEq/L (5-15); Aspartate Amino Transferase 31 U/L (17-59); Bilirubin,Total 0.8 mg/dl (0.2-1.3); Blood Urea Nitrogen 13 mg/dl (9-20); Carbon Dioxide 30 mmol/L (22.0-30.0); Creatinine Clearance Estimated 111 mL/min (50-200); Estimated Glomerular Filt Rate 94 ml/min (>60); GFR (African American) 114 ML/MIN (>60); Globulin 3.1 g/dL (1.3-3.2); Glucose 96 mg/dl (74-100); Total Protein,Serum 7.8 g/dl (6.3-8.2)
[2020-05-29 13:12] LABS: Amphetamine/Metha Screen,Urine Negative ng/ml (<1000)
[2020-05-29 13:13] LABS: Barbiturates Screen,Urine Negative ng/ml (<200); Benzodiazepines Screen,Urine Negative ng/ml (<200)
[2020-05-29 13:14] LABS: Cannabinoid Screen,Urine Negative ng/ml (<50)
[2020-05-29 13:15] LABS: Cocaine Screen,Urine Negative ng/ml (<300); Methadone Screen,Urine Negative ng/ml (<300)
[2020-05-29 13:16] LABS: Opiate Screen,Urine Positive ng/ml (<300); Phencyclidine Screen,Urine Negative ng/ml (<25)
[2020-05-29 14:08] VITALS: BP 135/105; PULSE 101; RESP 20; TEMP 36.7; O2SAT 99
== END 2020-05-29 14:08 | disposition home or self-care (01) ==
PROVIDERS: Emergency Provider Family Medicine; PCP Family Medicine
DX: M54.2 Cervicalgia (principal); F19.10 Other psychoactive substance abuse, uncomplicated; I10 Essential (primary) hypertension; E11.9 Type 2 diabetes mellitus without complications; K21.9 Gastro-esophageal reflux disease without esophagitis; G40.909 Epilepsy, unspecified, not intractable, without status epilepticus; Z88.0 Allergy status to penicillin; F17.210 Nicotine dependence, cigarettes, uncomplicated; Z79.899 Other long term (current) drug therapy
CPT/HCPCS: 80053; 80305; 83735; 99283

== ENCOUNTER → 2020-07-06 14:13 | Outpatient (CLI) | payer MEDICARE, BC, SELFPAY ==
[2020-07-06 14:56] LABS: Chloride 104 mmol/L (98-107); Potassium 4.5 mmoL/L (3.5-5.1); Sodium 138 mmol/L (136-145)
[2020-07-06 14:59] LABS: Anion Gap 11.5 mEq/L (5-15); Blood Urea Nitrogen 11 mg/dl (9-20); Carbon Dioxide 27 mmol/L (22.0-30.0); Estimated Glomerular Filt Rate 84 ml/min (>60); GFR (African American) 101 ML/MIN (>60); Glucose 97 mg/dl (74-100)
== END ==
PROVIDERS: Visit Provider Specialist
DX: G40.909 Epilepsy, unspecified, not intractable, without status epilepticus (principal)
CPT/HCPCS: 36415; 80048

== ENCOUNTER → 2020-07-13 11:25 | Outpatient (CLI) | payer MEDICARE, BC, SELFPAY ==
[2020-07-13 13:41] LABS: Vitamin B12 677 pg/mL (239-931)
[2020-07-14 17:39] LABS: Angiotensin Converting Enzyme 26 U/L (14-82)
== END ==
PROVIDERS: Visit Provider Specialist
DX: G40.909 Epilepsy, unspecified, not intractable, without status epilepticus (principal); M79.671 Pain in right foot; M79.672 Pain in left foot; R20.0 Anesthesia of skin; R20.2 Paresthesia of skin; R20.8 Other disturbances of skin sensation
CPT/HCPCS: 36415; 82164; 82525; 82607; 82746

== ENCOUNTER → 2020-07-30 09:26 | Outpatient (POV) | payer MEDICARE, BC, SELFPAY ==
[2020-07-30 09:55] VITALS: BP 133/85; PULSE 87; RESP 18; O2SAT 98; BMI 23.6
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
== END ==
PROVIDERS: PCP Family Medicine; Visit Provider Clinical Nurse Specialist Family Health
DX: M79.18 Myalgia, other site (principal)
CPT/HCPCS: 99202; G0463

== ENCOUNTER 2020-08-07 09:11 | Day surgery (SDC) | payer MEDICARE, BC, SELFPAY ==
[2020-08-07 09:49] VITALS: BP 123/74; PULSE 65; RESP 18; TEMP 36.3; O2SAT 95; BMI 22.8
[2020-08-07 10:14] VITALS: BP 112/74; PULSE 65
[2020-08-07 10:15] VITALS: BP 114/79; PULSE 85; RESP 18; O2SAT 98
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
[2020-08-07 10:30] VITALS: BP 109/66; PULSE 66; RESP 20; O2SAT 95
== END 2020-08-07 10:30 | disposition home or self-care (01) ==
LOC: SC.PAINP 09:14
PROVIDERS: PCP Family Medicine; Visit Provider Anesthesiology
DX: M79.18 Myalgia, other site (principal); M79.12 Myalgia of auxiliary muscles, head and neck; I10 Essential (primary) hypertension; R56.9 Unspecified convulsions; F41.9 Anxiety disorder, unspecified; F32.9 Major depressive disorder, single episode, unspecified; Z88.0 Allergy status to penicillin; Z88.8 Allergy status to other drugs, medicaments and biological substances; Z72.0 Tobacco use
CPT/HCPCS: 20553; J1030

== ENCOUNTER → 2020-09-03 08:49 | Outpatient (POV) | payer MEDICARE, BC, SELFPAY ==
[2020-09-03 08:51] VITALS: BP 121/69; PULSE 72; RESP 18; TEMP 36.3; O2SAT 98; BMI 25.0
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
== END ==
PROVIDERS: PCP Family Medicine; Visit Provider Clinical Nurse Specialist Family Health
DX: M79.18 Myalgia, other site (principal)
CPT/HCPCS: 99212; G0463

== ENCOUNTER → 2020-09-24 09:32 | Outpatient (POV) | payer MEDICARE, BC, SELFPAY ==
[2020-09-24 10:34] VITALS: BP 110/74; PULSE 65; RESP 18; O2SAT 98; BMI 24.3
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
== END ==
PROVIDERS: Visit Provider Clinical Nurse Specialist Family Health
DX: M50.10 Cervical disc disorder with radiculopathy, unspecified cervical region (principal)
CPT/HCPCS: 99212; G0463

== ENCOUNTER 2020-10-02 10:40 | Day surgery (SDC) | payer MEDICARE, BC, SELFPAY ==
[2020-10-02 10:57] VITALS: BP 129/78; PULSE 77; RESP 18; O2SAT 98; BMI 25.0
[2020-10-02 11:18] VITALS: BP 135/85; PULSE 74; RESP 18; O2SAT 98
[2020-10-02 11:20] VITALS: BP 140/74; PULSE 74; RESP 18; O2SAT 98
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
[2020-10-02 11:29] VITALS: BP 115/71; PULSE 72; RESP 20; O2SAT 98
== END 2020-10-02 11:30 | disposition home or self-care (01) ==
LOC: SC.PAINP 10:41
PROVIDERS: PCP Family Medicine; Visit Provider Anesthesiology
DX: M50.10 Cervical disc disorder with radiculopathy, unspecified cervical region (principal); M19.90 Unspecified osteoarthritis, unspecified site; R56.9 Unspecified convulsions; Z72.0 Tobacco use; F41.9 Anxiety disorder, unspecified; F32.9 Major depressive disorder, single episode, unspecified; Z90.49 Acquired absence of other specified parts of digestive tract; Z88.0 Allergy status to penicillin; Z88.8 Allergy status to other drugs, medicaments and biological substances; Z88.1 Allergy status to other antibiotic agents
CPT/HCPCS: 62321; J1040; Q9966

== ENCOUNTER → 2020-11-02 10:48 | Outpatient (POV) | payer MEDICARE, BC, SELFPAY ==
[2020-11-02 11:09] VITALS: BP 141/76; PULSE 89; RESP 18; O2SAT 98; BMI 26.6
--- NOTE | 2020-11-02 12:20 | HMH.PAINSOAP ---
[facility] Pain Management SOAP Note Subjective:: Patient is a 39-year-old white male who presents today for follow-up. The patient is being treated for degenerative disc disease cervical spine with cervical radicular symptoms. Patient does have chronic neck and arm pain. He has had trigger point injections in the past with no significant relief in 1 cervical epidural steroid injection. He got 70% relief for approximately 2 weeks following his cervical epidural steroid injection. Patient's pain is primarily in his neck and radiating into his bilateral shoulders. He rates his pain an 8 out of 10 today. His pain has returned. He did undergo physical therapy for greater than 6 weeks and continues with home stretching. He has tried ice and heat therapies as well as anti-inflammatories with no significant relief. He would like to repeat a cervical epidural steroid injection to see if it gives him longer relief. Review of Systems General: No recent weight changes, no fever, no sleep disturbances Respiratory: No cough, no shortness of air, no recurring pulmonary infections Cardiovascular/peripheral vascular: No chest pain, no palpitations, no edema, no shortness of breath Gastrointestinal: No new onset incontinence, normal bowel movements reported Genitourinary: No new onset incontinence Musculoskeletal: Neck pain radiating into bilateral shoulders Psychiatric: Normal mood/affect Neurological: [Denies weakness in extremities], [denies balance issues] Objective:: Physical exam General: Alert and oriented x3, no acute distress, pleasant and cooperative, [on room air] Lungs: Respirations even and unlabored, symmetrical chest expansion Eyes: PERRL Musculoskeletal: Flexion and extension of [] cervical spine somewhat guarded secondary to pain, deep tendon reflexes normal, strength in upper and lower extremities [5/5], normal gait noted Neurological: Speech clear, 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 He got 70% relief for 2 weeks after the injection. His pain has returned. We will order him Flexeril 10 mg 1 tablet p.o. twice daily as well to see if this helps with his pain. His pain is worse when he is laying down at night to sleep. We will see him back in the clinic after his injection to reevaluate his symptoms. He is not on any anticoagulation therapy. He will continue with home stretching. He will also continue with ice and heat therapies and anti-inflammatories. Risks and benefits of the procedure have been explained to the patient. Patient would like to proceed with the procedure. Possible side effects of corticosteroids have been discussed with the patient. Patient has been instructed to contact the clinic with any concerns before the next appointment. Dr. Chawla has reviewed this note and agrees with this plan of care. This note was dictated using voice recognition software and make contain errors or omissions. [facility] History I have reviewed the patient's past medical history: Yes Medical History: Reports:: Anxiety, Gastroesophageal Reflux Disease(GERD), Hypertension, Kidney Stones, Migraine, Seizures Denies:: Cancer, Diabetes Mellitus Type 1, Diabetes Mellitus Type 2, MRSA *Have you ever received a pneumonia vaccine?: No *Have you received a flu vaccine this season?: No Other Medical History: Reports: Arthritis. Denies: Blood Transfusion Reaction Other Surgeries: Yes: Cholecystectomy, Other Amputation: No Fractures: No - *Social History Smoking Status: Current every day smoker Tobacco Type: cigarettes # Packs/Day (cigarettes): 1 Alcohol Intake: never Alcohol Intake Frequency:: holidays/special occasions only Substance Use Type: denies use *Occupational Status:: unemployed Housing: house Household Members: significant other *Travel in the
== END ==
PROVIDERS: PCP Family Medicine; Visit Provider Clinical Nurse Specialist Family Health
DX: M50.10 Cervical disc disorder with radiculopathy, unspecified cervical region (principal)
CPT/HCPCS: 99212; G0463

== ENCOUNTER → 2020-11-09 17:36 | Outpatient (CLI) | payer MEDICARE, BC, SELFPAY ==
[2020-11-09 19:23] LABS: Amphetamine/Metha Screen,Urine Negative ng/ml (<1000)
[2020-11-09 19:24] LABS: Barbiturates Screen,Urine Negative ng/ml (<200); Benzodiazepines Screen,Urine Negative ng/ml (<200)
[2020-11-09 19:25] LABS: Cannabinoid Screen,Urine Negative ng/ml (<50)
[2020-11-09 19:26] LABS: Cocaine Screen,Urine Negative ng/ml (<300); Methadone Screen,Urine Negative ng/ml (<300)
[2020-11-09 19:27] LABS: Opiate Screen,Urine Negative ng/ml (<300)
[2020-11-09 19:28] LABS: Phencyclidine Screen,Urine Negative ng/ml (<25)
== END ==
PROVIDERS: Visit Provider Family Medicine
DX: Z79.899 Other long term (current) drug therapy (principal)
CPT/HCPCS: 80305

== ENCOUNTER 2020-11-13 10:20 | Day surgery (SDC) | payer MEDICARE, BC, SELFPAY ==
[2020-11-13 10:23] VITALS: BP 132/79; PULSE 94; RESP 18; TEMP 36.4; O2SAT 97; BMI 26.6
[2020-11-13 10:47] VITALS: BP 127/78; PULSE 82; RESP 18; O2SAT 100
[2020-11-13 10:48] VITALS: BP 132/80; PULSE 88; RESP 18; O2SAT 99
--- NOTE | 2020-11-13 11:01 | HMH.PMPROC ---
- Procedure Date: 11/13/20 Time: 11:01 Anesthesiologist:: Peg Dowling MD Complications:: None Pre-procedure Diagnosis:: Degenerative disc disease of the cervical spine, cervical radiculopathy Post-procedure Diagnosis:: same Indications for Procedure:: Patient is a very pleasant 39-year-old white male who presents today with chronic neck pain radiating primarily into his right arm related to the above diagnosis. He has previously trialed conservative treatment including oral pain medications as well as home stretching program with minimal relief. He has previously undergone cervical epidural steroid injection once in the past and got 70% pain relief for approximately 2 weeks. He has also undergone trigger point injections over the right upper trapezius musculature and notes some pain relief with this. The plan for today is for the patient to undergo repeat cervical epidural steroid injection at C7-T1 #2. Procedure Details:: Cervical epidural steroid injection under fluoroscopy Informed consent was obtained and the risks and benefits of the procedure was explained to the patient. The patient was taken to the procedure room placed prone on the procedure table. The neck was prepped using ChloraPrep. The skin and subcutaneous tissues were anesthetized using lidocaine. I placed a 18-gauge epidural needle into the C7-T1 interspace and advanced using [id number] to air and fluoroscopic guidance. After confirmation of needle placement in the epidural space with dye, I injected 3 mL's lidocaine 1.0% and Depo-Medrol 80 mg. The patient tolerated the procedure well with no complications. Plan and Disposition:: We will follow-up with this patient in 2 weeks. Will reevaluate pain symptoms at that time.
[2020-11-13 11:08] VITALS: BP 115/77; PULSE 85; RESP 20; O2SAT 97
== END 2020-11-13 11:10 | disposition home or self-care (01) ==
LOC: SC.PAINP 10:21
PROVIDERS: PCP Family Medicine; Visit Provider Anesthesiology Pain Medicine
DX: M50.10 Cervical disc disorder with radiculopathy, unspecified cervical region (principal); G43.909 Migraine, unspecified, not intractable, without status migrainosus; I10 Essential (primary) hypertension; K21.9 Gastro-esophageal reflux disease without esophagitis; M19.90 Unspecified osteoarthritis, unspecified site; F41.9 Anxiety disorder, unspecified
CPT/HCPCS: 62321; J1040; Q9966

== ENCOUNTER → 2020-12-03 13:51 | Outpatient (POV) | payer MEDICARE, BC, SELFPAY ==
[2020-12-03 14:41] VITALS: BP 147/83; PULSE 111; RESP 18; O2SAT 98; BMI 27.3
--- NOTE | 2020-12-03 16:03 | HMH.PAINSOAP ---
[facility] Pain Management SOAP Note Subjective:: Patient is a 40-year-old white male who presents today for follow-up. The patient is being treated for chronic neck pain with radicular symptoms into his right arm. He has previously tried conservative therapies which include physical therapy for greater than 6 weeks and home stretching with minimal relief. He has undergone cervical epidural steroid injections once in the past with 70% relief for 2 weeks. His most recent injection gave him 2 weeks of relief, but his pain did return. His pain subsided at about 60%. His pain is an 8 out of 10 today. Patient reports a history of seizures. He has not had any recent imaging. He would like a neurosurgical evaluation to determine if he is an appropriate candidate for surgical intervention. He does get short-term relief with the injections, but his pain does return. Patient's insurance will change on December 13. He would like for the MRI to be submitted at that time. We discussed tramadol, however, due to his history of seizures, I would use caution in giving him tramadol at this time. The patient has tried Flexeril with no relief. Review of Systems General: No recent weight changes, no fever, no sleep disturbances Respiratory: No cough, no shortness of air, no recurring pulmonary infections Cardiovascular/peripheral vascular: No chest pain, no palpitations, no edema, no shortness of breath Gastrointestinal: No new onset incontinence, normal bowel movements reported Genitourinary: No new onset incontinence Musculoskeletal: [] Neck pain with radiation into right arm Psychiatric: Normal mood/affect Neurological: [Denies weakness in extremities], [denies balance issues] Objective:: Physical exam General: Alert and oriented x3, no acute distress, pleasant and cooperative, [on room air] Lungs: Respirations even and unlabored, symmetrical chest expansion Eyes: PERRL Musculoskeletal: Flexion and extension of [] cervical spine somewhat guarded secondary to pain, deep tendon reflexes normal, strength in upper and lower extremities [5/5], normal gait noted Neurological: Speech clear, 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 He has tried and failed conservative therapies of physical therapy for more than 6 weeks along with continued home stretching. He has also tried anti-inflammatories with no significant relief. He has tried ice and heat therapies and did not get any relief. We will see the patient back after his MRI of his cervical spine and referred him to neurosurgery. We did plan to order tramadol, however, due to his history of seizures we will not be able to order this medication due to concerns of lowering threshold for seizures. Patient has been instructed to contact the clinic with any concerns before the next appointment. Dr. Chawla has reviewed this note and agrees with this plan of care. This note was dictated using voice recognition software and make contain errors or omissions. [facility] History I have reviewed the patient's past medical history: Yes Medical History: Reports:: Anxiety, Gastroesophageal Reflux Disease(GERD), Hypertension, Kidney Stones, Migraine, Seizures Denies:: Cancer, Diabetes Mellitus Type 1, Diabetes Mellitus Type 2, MRSA *Have you ever received a pneumonia vaccine?: No *Have you received a flu vaccine this season?: No Other Medical History: Reports: Arthritis. Denies: Blood Transfusion Reaction Other Surgeries: Yes: Cholecystectomy, Other Amputation: No Fractures: No - *Social History Smoking Status: Current every day smoker Tobacco Type: cigarettes # Packs/Day (cigarettes): 1 Alcohol Intake: never Alcohol Intake Frequency:: holidays/special occasions only Substance Use Type: denies use *Occupational Status:: unemployed Housing: house Household Members: s
== END ==
PROVIDERS: PCP Family Medicine; Visit Provider Clinical Nurse Specialist Family Health
DX: M50.10 Cervical disc disorder with radiculopathy, unspecified cervical region (principal)
CPT/HCPCS: 99212; G0463

== ENCOUNTER → 2020-12-09 12:49 | Outpatient (CLI) | payer MEDICARE, BC, SELFPAY ==
--- NOTE | 2020-12-09 13:01 | MR_ITS ---
PROCEDURE: MR CERVICAL SPINE WO CON CLINICAL INDICATION: CHRONIC NECK PAIN WITH HX OF SEIZURES COMPARISON: No exams were available for comparison TECHNIQUE: Standard multiplanar multiecho sequences are performed without contrast. 3-D MIP and myelographic images are also rendered and reviewed FINDINGS: There is normal alignment. There is straightening of the cervical lordosis which could be due to patient positioning or muscle spasm. Craniocervical junction has an unremarkable appearance. Unremarkable appearance of the cervical spinal cord. C2-C3: Unremarkable. C3-C4: There is mild bulging disc. There are small disc osteophyte complexes at the uncovertebral region on both sides causing mild bilateral foraminal narrowing slightly greater on right. Canal is narrowed at 10 mm. No cord impingement C4-C5: Unremarkable. C5-C6: Unremarkable. C6-C7: Unremarkable. C7-T1: Unremarkable. IMPRESSION: Straightening of the cervical lordosis Minimal bulging disc with small bilateral uncovertebral disc osteophyte complexes with mild bilateral foraminal narrowing at C3-C4 with narrowing of the canal at this level at 10 mm No extruded herniated disc Dictated by: Jose Pak MD 12/09/2020 18:06 Jose Pak MD in [place] 12/09/2020 18:06
== END ==
PROVIDERS: PCP Family Medicine; Visit Provider Clinical Nurse Specialist Family Health
DX: M54.2 Cervicalgia (principal)
CPT/HCPCS: 72141; 76376

== ENCOUNTER → 2021-04-27 08:49 | Outpatient (POV) | payer MEDICARE, BC, SELFPAY ==
[2021-04-27 08:54] VITALS: BP 170/91; PULSE 120; RESP 18; O2SAT 97; BMI 28.7
--- NOTE | 2021-04-27 09:19 | HMH.PAINSOAP ---
[facility] Pain Management SOAP Note Subjective:: Patient is a pleasant 40-year-old male who comes in here today for follow-up. Patient is currently being treated for degenerative disc disease of the cervical spine with cervical radiculopathy. Patient states that his pain on his posterior neck that radiates to bilateral arms with numbness and tingling. We last saw Mr. Corral in November after a cervical epidural steroid injection #2. So far, patient has had one trigger point injection in July 2020 and two cervical epidural injections (ULISES) -- September 2020 and November 2020. Patient says that he had some relief after these injections. He had about 60% relief for 2 weeks after the ULISES #2. Today, patient is still complaining of neck pain and according to the patient, his hx of seizures contributed to this. He is currently taking skelexin 800mg TID, flexeril 10mg TID, and gabapentin 400mg TID that are prescribed by his PCP. He says that these medications are not helping with his discomfort and denies any side effects from them. He says that the only thing that helped him was Lortab that was prescribed by PCP a few months ago. He comes in today with updated cervical MRI which shows mild bulging disc at the C3-C4 level, some mild bilateral foraminal narrowing, and canal narrowing. The other cervical levels are unremarkable. He rates his pain today as 8 out of 10. His Claudy number is [id number] with an active morphine equivalent of 0. Review of Systems General: No recent weight changes, no fever, no sleep disturbances Respiratory: No cough, no shortness of air, no recurring pulmonary infections Cardiovascular/peripheral vascular: No chest pain, no palpitations, no edema, no shortness of breath Gastrointestinal: No new onset incontinence, normal bowel movements reported Genitourinary: No new onset incontinence Musculoskeletal: Neck pain Psychiatric: [Normal mood/affect] Neurological: [Denies weakness in extremities], [denies balance issues] Objective:: Physical exam General: Alert and oriented x3, no acute distress, pleasant and cooperative Lungs: Respirations even and unlabored, symmetrical chest expansion Eyes: PERRL Musculoskeletal: Flexion and extension of cervical [spine] somewhat guarded secondary to pain, [antalgic gait noted] Neurological: Speech clear, no gross sensory deficit Assessment:: Bulging disc Cervical radiculopathy Plan:: Patient has tried and failed conservative therapy such as oral medications, physical therapy, and at home exercises for greater than 6 weeks. Patient has had cervical epidural steroid injections in the past that has helped him tremendously. We will schedule the patient for another cervical epidural steroid injection C3-C4 #3. Patient is currently not on any blood thinners. Risks and benefits of the procedure have been explained to the patient. Patient would like to proceed with the procedure. If patient gets temporary relief from this, we will consider working up the patient for a spinal cord stimulator. Patient has been instructed to contact the clinic with any concerns before the next appointment. Dr. Chawla has reviewed this note and agrees with this plan of care. This note was dictated using voice recognition software and make contain errors or omissions. [facility] History Medical History: Reports:: Anxiety, Gastroesophageal Reflux Disease(GERD), Hypertension, Kidney Stones, Migraine, Seizures Denies:: Cancer, Diabetes Mellitus Type 1, Diabetes Mellitus Type 2, MRSA *Have you ever received a pneumonia vaccine?: No *Have you received a flu vaccine this season?: No Other Medical History: Reports: Arthritis. Denies: Blood Transfusion Reaction Other Surgeries: Yes: Cholecystectomy, Other Amputation: No Fractures: No - *Social History Smoking Status: Current every day smoker Tobacco Type: cigarettes # Packs/Day (cigarettes): 1 Alcohol Intake: never Alcohol Intake Frequency:: holidays/special occasions onl
== END ==
PROVIDERS: Visit Provider Clinical Nurse Specialist Family Health
DX: M54.12 Radiculopathy, cervical region (principal)
CPT/HCPCS: 99212; G0463

== ENCOUNTER 2021-05-19 10:26 | Day surgery (SDC) | payer MEDICARE, BC, SELFPAY ==
[2021-05-19 10:50] VITALS: BP 150/84; PULSE 84; RESP 20; TEMP 37; O2SAT 99; BMI 28.7
[2021-05-19 11:13] VITALS: BP 134/78; PULSE 79; RESP 18; O2SAT 98
--- NOTE | 2021-05-19 11:24 | HMH.PMPROC ---
- Procedure Date: 05/19/21 Time: 11:24 Anesthesiologist:: Monico Chawla MD Complications:: None Pre-procedure Diagnosis:: Degenerative disc disease of cervical spine with cervical radiculopathy symptoms Post-procedure Diagnosis:: Same Indications for Procedure:: Patient is a pleasant 40-year-old white male who we are treating for neck pain with cervical radicular symptoms. He has had 2 previous cervical epidural steroid injections with 60 to 80% relief in pain symptoms. His pain is just now starting to return. We will do a repeat cervical epidural steroid injection under fluoroscopy today. Procedure Details:: Cervical epidural steroid injection under fluoroscopy Informed consent was obtained and the risks and benefits of the procedure was explained to the patient. The patient was taken to the procedure room placed prone on the procedure table. The neck was prepped using ChloraPrep. The skin and subcutaneous tissues were anesthetized using lidocaine. I placed a 18-gauge epidural needle into the C3-C4 interspace and advanced using [id number] to air and fluoroscopic guidance. After confirmation of needle placement in the epidural space with dye, I injected 3 mL's lidocaine 1.5% and Depo-Medrol 80 mg. The patient tolerated the procedure well with no complications. Plan and Disposition:: Follow-up with him in 2 weeks. Will reevaluate his symptoms at that time.
[2021-05-19 11:31] VITALS: BP 149/94; PULSE 83; RESP 20; O2SAT 99
== END 2021-05-19 11:32 | disposition home or self-care (01) ==
LOC: SC.PAINP 10:29
PROVIDERS: PCP Family Medicine; Visit Provider Anesthesiology
DX: M50.10 Cervical disc disorder with radiculopathy, unspecified cervical region (principal); G43.909 Migraine, unspecified, not intractable, without status migrainosus; I10 Essential (primary) hypertension; K21.9 Gastro-esophageal reflux disease without esophagitis; R56.9 Unspecified convulsions; Z87.442 Personal history of urinary calculi; E78.5 Hyperlipidemia, unspecified; J45.909 Unspecified asthma, uncomplicated; M19.90 Unspecified osteoarthritis, unspecified site; Z72.0 Tobacco use; Z90.49 Acquired absence of other specified parts of digestive tract; Z88.0 Allergy status to penicillin; Z88.1 Allergy status to other antibiotic agents; Z88.8 Allergy status to other drugs, medicaments and biological substances
CPT/HCPCS: 62321; J1040; Q9966

== ENCOUNTER → 2021-06-07 09:59 | Outpatient (POV) | payer MEDICARE, BC, SELFPAY ==
[2021-06-07 10:17] VITALS: BP 158/85; PULSE 111; RESP 18; O2SAT 96; BMI 37.2
--- NOTE | 2021-06-07 10:19 | HMH.PAINSOAP ---
[facility] Pain Management SOAP Note Subjective:: Patient is a pleasant 40-year-old male who comes in here today for follow-up after a cervical epidural steroid injection #2. Patient is currently being treated for degenerative disc disease of cervical spine with cervical radiculopathy symptoms. After the procedure, patient had significant relief, 80-90%, for about 2 weeks. Today, he rates his pain as 8 out of 10. Patient has a hx of epilepsy. According to the patient, this has caused him significant pain in the cervical spine. The pain radiates to bilateral upper extremities. Patient has tried and failed conservative therapies such as physical therapy and at home exercises for greater than 6 weeks. Patient says that the only thing that has helped him is when he was given Vicodin by Dr. Mcgraw. I again reiterated with the patient that we rarely prescribe oral pain medication. I discussed with the patient that since he gets good relief after each cervical epidural steroid injection, he is a good candidate for a spinal cord stimulator. Patient is hesitant to move forward with this plan. Patient says that he would like to see a different pain clinic. His Claudy number is [phone] with an active morphine equivalent of 0. ORT score is 2, low risk. Review of Systems General: No recent weight changes, no fever, no sleep disturbances Respiratory: No cough, no shortness of air, no recurring pulmonary infections Cardiovascular/peripheral vascular: No chest pain, no palpitations, no edema, no shortness of breath Gastrointestinal: No new onset incontinence, normal bowel movements reported Genitourinary: No new onset incontinence Musculoskeletal: Neck pain Psychiatric: [Normal mood/affect] Neurological: [Denies weakness in extremities], [denies balance issues] Objective:: Physical exam General: Alert and oriented x3, no acute distress, pleasant and cooperative Lungs: Respirations even and unlabored, symmetrical chest expansion Eyes: PERRL Musculoskeletal: Flexion and extension of cervical [spine] somewhat guarded secondary to pain Neurological: Speech clear, no gross sensory deficit Assessment:: Degenerative disc disease of the cervical spine with cervical radiculopathy symptoms Plan:: Patient had significant relief after getting a cervical epidural steroid injection #2. He says he had about 80 to 90% relief that lasted for 2 weeks. I discussed with the patient that he is a good candidate for a spinal cord stimulator implant. Patient is hesitant to move forward with this plan. He says that the only thing that has helped him was when he was given Vicodin by Dr. Mcgraw. I reiterated with him that we rarely prescribe oral pain medications. Patient says that he would like to see a different pain clinic. We will see this patient as needed. Patient has been instructed to contact the clinic with any concerns before the next appointment. Dr. Chawla has reviewed this note and agrees with this plan of care. This note was dictated using voice recognition software and make contain errors or omissions. [facility] History Medical History: Reports:: Anxiety, Gastroesophageal Reflux Disease(GERD), Hyperlipidemia, Hypertension, Kidney Stones, Migraine, Seizures Denies:: Cancer, Diabetes Mellitus Type 1, Diabetes Mellitus Type 2, MRSA *Have you ever received a pneumonia vaccine?: No *Have you received a flu vaccine this season?: No Other Medical History: Reports: Arthritis. Denies: Blood Transfusion Reaction Other Surgeries: Yes: Cholecystectomy, Other Amputation: No Fractures: No - *Social History Smoking Status: Current every day smoker Tobacco Type: cigarettes # Packs/Day (cigarettes): 1 Alcohol Intake: never Alcohol Intake Frequency:: holidays/special occasions only Substance Use Type: denies use *Occupational Status:: unemployed Housing: house Household Members: significant other *Travel in the last 8 weeks: None - Psychiatric History Pschychiatric His
== END ==
PROVIDERS: Visit Provider Clinical Nurse Specialist Family Health
DX: M50.10 Cervical disc disorder with radiculopathy, unspecified cervical region (principal)
CPT/HCPCS: 99212; G0463

== ENCOUNTER 2021-12-18 13:28 | Emergency (ER) | payer MEDICARE, BC, SELFPAY ==
[2021-12-18 13:36] VITALS: BP 136/82; PULSE 83; RESP 16; O2SAT 99
[2021-12-18 13:41] VITALS: BP 136/82; PULSE 136; RESP 18; TEMP 36.9; O2SAT 100; BMI 31.9
--- NOTE | 2021-12-18 13:46 | XR_ITS ---
PROCEDURE INFORMATION: Exam: XR Right Foot Exam date and time: 12/18/2021 1:51 PM Age: 41 years old Clinical indication: Pain; Foot; Right; Additional info: Pain-work accident TECHNIQUE: Imaging protocol: Radiologic exam of the Right foot. Views: 3 or more views. COMPARISON: No relevant prior studies available. FINDINGS: Bones/joints: A bipartite medial hallux sesamoid bone which is likely developmental, or could be due to sesamoid stress fracture of indeterminate age. No other evidence of fracture or dislocation in the foot. A possible mild hallux valgus deformity, which would be more accurately evaluated with weight-bearing. Minimal arthritis at the 1st MTP joint. There are no lytic skeletal lesions seen. Soft tissues: Mild soft tissue swelling.No radiopaque foreign bodies. No pathologic soft tissue calcification. IMPRESSION: 1. Bipartite medial hallux sesamoid bone which is likely developmental, but could be due to sesamoid stress fracture of indeterminate age, correlate for the area of pain/injury. 2. No other fracture or dislocation. 3. Additional nonemergency and chronic findings as above.
--- NOTE | 2021-12-18 14:14 | HMH.EDGENADL ---
ED Disposition Clinical Impression: Achilles tendinitis Qualifiers: Laterality: right Qualified Code(s): M76.61 - Achilles tendinitis, right leg Disposition: Home, Self-Care Condition on Discharge: Good Instructions: DI for Achilles Tendinopathy Additional Instructions: Ibuprofen as prescribed. Ice 20 minutes 4 times a day. Crutches, sitting job only until follow-up with podiatry. Call Dr. Bedoya, podiatry, on Monday to arrange follow-up appointment. Prescriptions: Ibuprofen [Ibuprofen 800mg Tablet] 800 mg PO Q8HP PRN #15 tab PRN Reason: Moderate Pain Transmission Status: Pending to [id number] Referrals: Timothy Mcgraw MD [Primary Care Provider] - Olivia Bedoya DPM [Staff Physician] - Forms: Work/School Release - Critical Care Critical Care Time: No Attestation: On 12/18/21, the high probability of a clinically significant, sudden or life threatening deterioration of the following system(s) required my full and direct attention, intervention and personal management. The time I documented below is in addition to time spent performing reported procedures but includes the following listed in this critical care notation. Medical Decision Making - Claudy Inquiry Pt receiving controlled substance: No Vital Signs: 12/18/21 13:36 12/18/21 13:41 Temperature 98.4 F Temperature Source Oral Pulse Rate 83 Pulse Rate [Left Radial] 136 H Respiratory Rate 16 18 Blood Pressure 136/82 Blood Pressure [Right Arm] 136/82 Blood Pressure Mean 96 Blood Pressure Mean [Right Arm] 100 02 Sat by Pulse Oximetry 99 100 Oxygen Delivery Method Room Air Room Air - Radiology Data #1 Image(s): Foot/Toes (Preliminary interpretation by me: No fracture or dislocation) Image Reviewed: Yes I reviewed the patient's radiology image, Yes I have reviewed radiologist's interpretation PROCEDURE INFORMATION: Exam: XR Right Foot Exam date and time: 12/18/2021 1:51 PM Age: 41 years old Clinical indication: Pain; Foot; Right; Additional info: Pain-work accident TECHNIQUE: Imaging protocol: Radiologic exam of the Right foot. Views: 3 or more views. COMPARISON: No relevant prior studies available. FINDINGS: Bones/joints: A bipartite medial hallux sesamoid bone which is likely developmental, or could be due to sesamoid stress fracture of indeterminate age. No other evidence of fracture or dislocation in the foot. A possible mild hallux valgus deformity, which would be more accurately evaluated with weight-bearing. Minimal arthritis at the 1st MTP joint. There are no lytic skeletal lesions seen. Soft tissues: Mild soft tissue swelling.No radiopaque foreign bodies. No pathologic soft tissue calcification. IMPRESSION: 1. Bipartite medial hallux sesamoid bone which is likely developmental, but could be due to sesamoid stress fracture of indeterminate age, correlate for the area of pain/injury. 2. No other fracture or dislocation. 3. Additional nonemergency and chronic findings as above. Medical Decision Narrative: X-ray interpretation reviewed. Stress fracture of hallux sesamoid not suggestive by clinical symptomatology. No pain in that area. Pain is isolated to the posterior heel area, consistent with Achilles tendinitis. General Adult HPI - General Chief complaint: PAIN Stated complaint: rt ankle injury, Wc 12/15/21 Time Seen by Provider: 12/18/21 14:14 Mode of Arrival: Ambulatory Limitations: No Limitations Description of Symptoms (Recalled from ER Triage Doc. by RN): pt to ed c/o right foot pain. pt states he was at work on monday and stepped on his heel wrong and has been having pain since. - History of Present Illness HPI narrative: 4-day history of pain in his left posterior heel. 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 Has pain with weightbearing. No me
[2021-12-18 14:30] VITALS: BP 118/72; PULSE 88; RESP 16; O2SAT 99
[2021-12-18 15:00] VITALS: BP 127/65; PULSE 78; RESP 16; TEMP 36.6; O2SAT 98
--- NOTE | 2021-12-18 15:00 | PC.NURSE ---
crutches given with instructions pt demonstrated use.
== END 2021-12-18 15:01 | disposition home or self-care (01) ==
PROVIDERS: Emergency Provider Emergency Medicine; PCP Family Medicine
DX: S92.902A Unspecified fracture of left foot, initial encounter for closed fracture (principal); M76.61 Achilles tendinitis, right leg; M79.672 Pain in left foot; M79.671 Pain in right foot; I10 Essential (primary) hypertension; E78.5 Hyperlipidemia, unspecified; M19.90 Unspecified osteoarthritis, unspecified site; G43.909 Migraine, unspecified, not intractable, without status migrainosus; G40.909 Epilepsy, unspecified, not intractable, without status epilepticus; F17.210 Nicotine dependence, cigarettes, uncomplicated; F41.9 Anxiety disorder, unspecified; Z79.1 Long term (current) use of non-steroidal anti-inflammatories (NSAID); Z79.51 Long term (current) use of inhaled steroids; Z79.52 Long term (current) use of systemic steroids; Z79.899 Other long term (current) drug therapy; Z88.0 Allergy status to penicillin; Z88.1 Allergy status to other antibiotic agents; Z88.3 Allergy status to other anti-infective agents; Z88.8 Allergy status to other drugs, medicaments and biological substances; Z87.442 Personal history of urinary calculi; Z81.1 Family history of alcohol abuse and dependence; Z81.3 Family history of other psychoactive substance abuse and dependence
CPT/HCPCS: 73630; 99283

== ENCOUNTER → 2022-01-18 14:38 | Outpatient (CLI) | payer MEDICARE, BC, SELFPAY ==
--- NOTE | 2022-01-18 14:45 | XR_ITS ---
FINAL REPORT CLINICAL HISTORY: foot pain FINDINGS: RIGHT FOOT: Three weight-bearing views of the right foot were obtained. There is no acute fracture or dislocation. There are mild degenerative changes of the midfoot. There is no soft tissue abnormality. IMPRESSION: Mild midfoot degenerative change. Reviewed, Interpreted and Dictated by Ceasar Blackmon III, MD Transcribed by Ad Gomez Authenticated and [facility]
--- NOTE | 2022-01-18 14:45 | XR_ITS ---
FINAL REPORT CLINICAL HISTORY: ankle pain FINDINGS: RIGHT ANKLE: Three views of the right ankle were obtained. There is no acute fracture or dislocation. The joint spaces and mortise are intact. There is no soft tissue abnormality. IMPRESSION: No acute process. Reviewed, Interpreted and Dictated by Ceasar Blackmon III, MD Transcribed by Ad Gomez Authenticated and [facility]
== END ==
PROVIDERS: PCP Family Medicine; Visit Provider Podiatrist
DX: M25.571 Pain in right ankle and joints of right foot (principal); M79.671 Pain in right foot
CPT/HCPCS: 73610; 73630

== ENCOUNTER 2022-02-03 15:10 | Emergency (ER) | payer MEDICARE, BC, SELFPAY ==
[2022-02-03 16:15] VITALS: BP 125/73; PULSE 88; RESP 19; TEMP 36.8; O2SAT 98; BMI 29.5
--- NOTE | 2022-02-03 16:33 | EXP.UTC ---
Discharge Plan Disposition Patient Disposition: Home, Self-Care Condition: Good Prescriptions Prescriptions: No Action lamotrigine 100 mg tablet 150 mg PO BID buspirone 10 mg tablet 10 mg PO BID Qty: 60 1RF cariprazine 3 mg capsule 3 mg PO DAILY Qty: 30 1RF hydroxyzine pamoate 50 mg capsule 50 mg PO TID PRN (Reason: anxiety) Qty: 90 1RF paroxetine HCl [Paxil] 10 mg tablet 10 mg PO DAILY Qty: 30 2RF cyclobenzaprine 10 mg tablet 10 mg PO TID PRN (Reason: muscle spasm) Qty: 60 3RF gabapentin 600 mg tablet 600 mg PO TID lisinopril 20 mg tablet 20 mg PO DAILY Qty: 30 0RF albuterol sulfate 90 mcg/actuation HFA aerosol inhaler See Rx Instructions .Route .COMPLEX Qty: 8.5 10RF Rx Instructions: INHALE 2 PUFFS BY MOUTH THREE TIMES DAILY NEEDED FOR SHORTNESS OF BREATH FOR WHEEZING Referrals Follow up/Referrals: Timothy Mcgraw MD [Primary Care Provider] - See instructions Activity Restrictions/Add. Instructions Additional Instructions/Restrictions: *Monitor Temp, Over the counter Motrin or Tylenol as directed/as needed Tylenol every 4 hours and Motrin every 6 hours (as long as your family doctor has told you that you can take it) for fever or pain. and straight to ER if unable to lower temp less than 101.0 after medication given *Warm salt water gargles may help to soothe the throat *Throat Lozenges? *Warm fluids like tea with honey may help to soothe the throat? *Sleep elevated *Humidifier/Vaporizer Follow up IMMEDIATELY for new or worsening symptoms or no Noticeable improvement over the next 48-72 hours. 911 for difficulty breathing or swallowing You were tested for today for COVID19 your test result should be back in the next 24-48 hours, you may check your results on the [facility] My Health Portal Make sure to take your Vitamins Vit. C Vit D and Zinc if you can take them Clinical Impressions Clinical Impression: Viral upper respiratory tract infection Stand Alone Forms Stand Alone Forms: Work/School Release Instructions Patient Instructions: Coronavirus Disease 2019, DI for Viral Upper Respiratory Infection -- Adult Discharge ED Provider: Lucia Rey [facility] HPI General Stated complaint: covid test, sore throat Time Seen by Provider: 02/03/22 16:33 History of Present Illness Provider Complaint: Patient states that he woke up this morning feeling achy all over having chills and scratchy throat States that he wanted to come in and get tested for COVID to make sure he didnt have it Related Data Home Medications Medication Instructions Recorded Confirmed lamotrigine 100 mg tablet 150 mg PO BID seizure 07/19/21 01/18/22 gabapentin 600 mg tablet 600 mg PO TID 12/21/21 01/18/22 Previous Rx's Medication Instructions Recorded cyclobenzaprine 10 mg tablet 10 mg PO TID PRN muscle spasm #60 04/13/21 tabs lisinopril 20 mg tablet 20 mg PO DAILY . #30 tabs 08/11/21 albuterol sulfate 90 mcg/actuation See Rx Instructions .Route 12/08/21 aerosol inhaler .COMPLEX soa #8.5 grams buspirone 10 mg tablet 10 mg PO BID #60 tabs 12/27/21 cariprazine 3 mg capsule 3 mg PO DAILY . #30 caps 12/27/21 hydroxyzine pamoate 50 mg capsule 50 mg PO TID PRN anxiety #90 caps 12/27/21 paroxetine HCl 10 mg tablet (Paxil) 10 mg PO DAILY #30 tabs 12/27/21 Allergies Allergy/AdvReac Type Severity Reaction Status Date / Time levetiracetam [From Keppra] Allergy Severe suicidal Verified 01/18/22 15:48 thoughts amoxicillin Allergy Verified 01/18/22 15:48 Penicillins Allergy Verified 01/18/22 15:48 venlafaxine [From Effexor] Allergy Verified 01/18/22 15:48 [facility] Social History Smoking Status: Current every day smoker tobacco type: cigarettes packs per day: 1 second hand exposure: No alcohol intake: current substance use type: denies use current occupational status: unemployed Travel in the last 8 weeks: None household members
[2022-02-03 16:46] VITALS: BP 125/73; PULSE 88; RESP 19; TEMP 36.8; O2SAT 98
== END 2022-02-03 16:49 | disposition home or self-care (01) ==
PROVIDERS: Emergency Provider Nurse Practitioner; PCP Family Medicine
DX: J06.9 Acute upper respiratory infection, unspecified (principal)
CPT/HCPCS: 99212; C9803; G0463; U0003; U0005

== ENCOUNTER 2022-05-11 11:01 | Emergency (ER) | payer MEDICARE, BC, SELFPAY ==
[2022-05-11 11:02] VITALS: BP 145/84; PULSE 88; RESP 20; TEMP 36.6; O2SAT 100; BMI 33.4
--- NOTE | 2022-05-11 11:20 | PC.NURSE ---
DR. READ AT BEDSIDE
--- NOTE | 2022-05-11 11:25 | HMH.EDGENADL ---
Discharge Plan Disposition Patient Disposition: Home, Self-Care Condition: Good Prescriptions Prescriptions: New methocarbamol 750 mg tablet 1,500 mg PO TID 5 Days Qty: 30 0RF prednisone 20 mg tablet 20 mg PO DAILY 5 Days Qty: 5 0RF No Action lamotrigine 100 mg tablet 150 mg PO BID cyclobenzaprine 10 mg tablet 10 mg PO TID PRN (Reason: muscle spasm) Qty: 60 3RF gabapentin 600 mg tablet 600 mg PO TID lisinopril 20 mg tablet 20 mg PO DAILY Qty: 30 0RF albuterol sulfate 90 mcg/actuation HFA aerosol inhaler See Rx Instructions .Route .COMPLEX Qty: 8.5 10RF Rx Instructions: INHALE 2 PUFFS BY MOUTH THREE TIMES DAILY NEEDED FOR SHORTNESS OF BREATH FOR WHEEZING buspirone 10 mg tablet 10 mg PO BID Qty: 60 1RF cariprazine 3 mg capsule 3 mg PO DAILY Qty: 30 1RF paroxetine HCl [Paxil] 20 mg tablet 20 mg PO DAILY Qty: 30 1RF hydroxyzine pamoate 50 mg capsule 50 mg PO TID PRN (Reason: anxiety) Qty: 90 1RF Referrals Follow up/Referrals: Timothy Mcgraw MD [Primary Care Provider] - See instructions Activity Restrictions/Add. Instructions Additional Instructions/Restrictions: Follow-up with your primary care provider regarding his visit to the emergency department. Talk to them about scheduling of physical therapy. Take Robaxin and prednisone as prescribed. Tylenol every 6 hours, 1000 mg, for pain and inflammation. Clinical Impressions Clinical Impression: Low back pain radiating down leg Instructions Patient Instructions: DI for Low Back Pain Discharge ED Provider: Roger Hinds General Adult HPI General Chief complaint: Back Pain/Injury Stated complaint: AO@Work 05/07 lower back pain Time Seen by Provider: 05/11/22 11:07 History of Present Illness HPI narrative: This is an otherwise healthy 41-year-old male presenting with back pain. Patient states that 4 days prior to arrival, he was lifting heavy boxes at work and felt acute pain in his back. Denies any other trauma. Denies lower extremity symptoms, bowel or bladder dysfunction, inability to ambulate. Has 6 out of 10 pain that does not radiate. Made better by lying flat on his back, made worse with any motion and twisting. Related Data Home Medications Medication Instructions Recorded Confirmed lamotrigine 100 mg tablet 150 mg PO BID seizure 07/19/21 02/28/22 gabapentin 600 mg tablet 600 mg PO TID 12/21/21 02/28/22 Previous Rx's Medication Instructions Recorded cyclobenzaprine 10 mg tablet 10 mg PO TID PRN muscle spasm #60 04/13/21 tabs lisinopril 20 mg tablet 20 mg PO DAILY . #30 tabs 08/11/21 albuterol sulfate 90 mcg/actuation See Rx Instructions .Route 12/08/21 aerosol inhaler .COMPLEX soa #8.5 grams buspirone 10 mg tablet 10 mg PO BID #60 tabs 03/30/22 cariprazine 3 mg capsule 3 mg PO DAILY . #30 caps 03/30/22 hydroxyzine pamoate 50 mg capsule 50 mg PO TID PRN anxiety #90 caps 03/30/22 paroxetine HCl 20 mg tablet (Paxil) 20 mg PO DAILY #30 tabs 03/30/22 methocarbamol 750 mg tablet 1,500 mg PO TID 5 days #30 tabs 05/11/22 prednisone 20 mg tablet 20 mg PO DAILY 5 days #5 tabs 05/11/22 Allergies Allergy/AdvReac Type Severity Reaction Status Date / Time levetiracetam [From Keppra] Allergy Severe suicidal Verified 02/28/22 11:04 thoughts amoxicillin Allergy Verified 02/28/22 11:04 Penicillins Allergy Verified 02/28/22 11:04 venlafaxine [From Effexor] Allergy Verified 02/28/22 11:04 [facility] Disclaimer: The information contained in this section may have been updated after the patient was seen, as this information can be updated by other users. Medical History (Updated 05/11/22 @ 11:34 by Roger Hinds MD) Generalized anxiety disorder Hypertension Recurrent major depression resistant to treatment Seizure disorder Social History (Updated 02/03/22 @ 16:45 by Viridiana Marina RN) Smoking Status: Current every day smoker tobacco type: cigarettes pac
[2022-05-11 11:30] VITALS: BP 126/81; PULSE 74; O2SAT 99
[2022-05-11 11:40] VITALS: BP 126/81; PULSE 78; RESP 18; TEMP 37; O2SAT 99
== END 2022-05-11 11:40 | disposition home or self-care (01) ==
PROVIDERS: Emergency Provider Emergency Medicine; PCP Family Medicine
DX: M54.50 Low back pain, unspecified (principal)
CPT/HCPCS: 99283

== ENCOUNTER 2023-03-10 10:00 | Outpatient (RCR) | payer MEDICARE, BC, SELFPAY ==
--- NOTE | 2023-02-24 10:28 | HMH.PTOPEV ---
PT Outpatient Evaluation Rehab PT Outpatient Evaluation Start: 02/24/23 10:15 Freq: Status: Active Protocol: Document 02/24/23 10:15 FELIX (Rec: 02/24/23 10:28 FERNANDANICOLE [id number]) E-signed By Charles Solorzano, PT Outpatient Therapy Subjective History Subjective History Patient is a 42 year old male presenting to outpatient PT with reports of chronic cervical spine pain that radiates to B upper trapezius mm. Symptoms of insidious onset starting approx 4 years ago. Most recent imaging indicates minimal bulging disc at C 3/4, as well as osteophytes and foraminal narrowing. Patient previously completed an episode of PT with some improvements noted. 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 The neck pain start when I got the seizures taken care of with medication. Other comorbidities include hx of HTN and anxiety. New diagnosis of cancer in past 12 No months? Chief Complaint Pain,Stiff Symptom Type Ache Symptoms Relieved By Rest/Positioning,Prescription Meds,Activity Symptoms Aggravated By Physical Activity,Lifting Prior Functional Limitations None Current Functional Limitations Reaching,Lifting,Housework, Driving,Sleeping Symptom Description Constant but Variable Level of pain today (0-10) 7 Pain scale - at its best (0-10) 6 Pain scale - at its worst (0-10) 8 Cervical Eval Palpation Cervical Muscles R Suboccipital,L Suboccipital, R Upper Trapezius,L Upper Trapezius Cervical/Thoracic Palpation Findings Tenderness,Spasm Posture Head/C-Spine Posture Sitting Position C-Spine Flattened Head/C-Spine Posture Standing Position C-Spine Flattened Flexibility Deficits Upper Trapezius Muscle Length (R) Moderate Tightness,(L) Moderate Tightness Levaetor Scapulae Muscle Length (R) Moderate Tightness,(L) Moderate Tightness Scalene Group Muscle Length (R) Moderate Tightness,(L) Moderate Tightness Pectoralis Minor Muscle Length (R) Moderate Tightness,(L)
== END 2023-03-10 10:05 | disposition home or self-care (01) ==
LOC: PT 10:00
PROVIDERS: PCP Nurse Practitioner Family; Visit Provider Nurse Practitioner Family
DX: M54.2 Cervicalgia (principal); M54.12 Radiculopathy, cervical region; G89.29 Other chronic pain
CPT/HCPCS: 20561; 97010; 97014; 97163; G0283

== ENCOUNTER 2023-05-29 07:12 | Outpatient (CLI) | payer MEDICARE, BC, SELFPAY ==
--- NOTE | 2023-05-29 07:39 | MR_ITS ---
FINAL REPORT CLINICAL HISTORY: Neck pain, Abnormal MR in past. left arm pain COMPARISON: 12/09/2020 FINDINGS: Multiplanar MR imaging of the cervical spine was performed without contrast. On the sagittal T2-weighted images, disc degeneration is seen at multiple levels. There is no evidence of fracture. The vertebral alignment is normal. The cervical spinal cord has an unremarkable appearance without evidence of mass, edema or syrinx. No significant canal stenosis is identified. The cervicomedullary junction is normal. C2-3: There is no significant canal stenosis or neural foraminal narrowing. C3-4: There is an annular disc bulge with uncovertebral osteophytes and mild bilateral neuroforaminal narrowing, stable from prior exam. C4-5: There is an annular disc bulge without significant canal stenosis or neural foraminal narrowing. C5-6: There is an annular disc bulge and small uncovertebral osteophytes without significant canal stenosis or neural foraminal narrowing. C6-7: There is no significant canal stenosis or neural foraminal narrowing. C7-T1: There is no significant canal stenosis or neural foraminal narrowing. IMPRESSION: Multilevel disc degeneration with mild bilateral neuroforaminal narrowing at C3-4, stable from prior exam. Reviewed, Interpreted and Dictated by Ceasar Blackmon III, MD Transcribed by Domonique Park Authenticated and [facility]
== END 2023-05-29 23:59 ==
LOC: RAD 07:12
PROVIDERS: PCP Nurse Practitioner Family; Visit Provider Nurse Practitioner Family
DX: G89.29 Other chronic pain (principal); M54.12 Radiculopathy, cervical region; M54.2 Cervicalgia
CPT/HCPCS: 72141; 76376

== ENCOUNTER 2023-06-16 09:19 | Emergency (ER) | payer MEDICARE, BC, SELFPAY ==
[2023-06-16 10:00] VITALS: BP 99/56; PULSE 116; RESP 24; TEMP 36.9; O2SAT 95; BMI 27.2
--- NOTE | 2023-06-16 10:12 | EXP.UTC ---
Discharge Plan Disposition Patient Disposition: Home, Self-Care Condition: Good Prescriptions Prescriptions: No Action gabapentin 600 mg tablet 600 mg PO TID hydrocodone-acetaminophen 7.5-325 mg tablet 1 tab PO Q4HP PRN (Reason: Pain) Patient Comments: TAKE 1 TABLET BY MOUTH TWICE DAILY NEEDED lisinopril 20 mg tablet 20 mg PO DAILY Qty: 90 3RF baclofen 10 mg tablet 10 mg PO DAILY buspirone 10 mg tablet 10 mg PO DAILY Patient Comments: TAKE 1 TABLET BY MOUTH TWICE DAILY lamotrigine 100 mg tablet 100 mg PO DAILY prednisone 20 mg Tablet 20 mg PO TID Referrals Follow up/Referrals: Eduardo Gillette APRN [Primary Care Provider] - See instructions Activity Restrictions/Add. Instructions Additional Instructions/Restrictions: *Monitor Temp, Over the counter Motrin or Tylenol as directed/as needed Tylenol every 4 hours and Motrin every 6 hours (as long as your family doctor has told you that you can take it) for fever or pain. and straight to ER if unable to lower temp less than 101.0 after medication given *Warm salt water gargles may help to soothe the throat *Throat Lozenges? *Warm fluids like tea with honey may help to soothe the throat? *Sleep elevated *Humidifier/Vaporizer *Flonase 2 sprays in each nostril daily but be aware that it may take 2-3 days before you notice improvement *Bromfed may cause drowsiness. Know how it effects you (your child) before driving, caring for small child, or sending your child to school. Not other antihistamines/allergy medications while taking bromfed Your throat swab was sent for culture. Those results are typically sent to your primary care. Be sure to follow up in 2-3 days with your family doctor/primary care physician if no improvement so they can review those result and treat if necessary. If you don?t have a primary care doctor, I recommend you get one but in the mean time, you will have to return to a walk in clinic Follow up IMMEDIATELY for new or worsening symptoms or no Noticeable improvement over the next 48-72 hours. 911 for difficulty breathing or swallowing You were tested for today for Upper Respiratory Panel with COVID19 your test result should be back in the next 24hours, you may check your results on the [facility] My Health Portal if your COVID test is positive you must Quarantine for 5 days Clinical Impressions Clinical Impression: Viral syndrome Stand Alone Forms Stand Alone Forms: Work/School Release Instructions Patient Instructions: DI for Viral Syndrome, DI for Fever (Symptom) -- Adult, DI for Headache Discharge ED Provider: Lucia Rey [facility] [place] HPI General Stated complaint: WEAKNESS AND SOA Mode of Arrival: Ambulatory Source of Information: Patient Limitations: No Limitations Time Seen by Provider: 06/16/23 10:12 Description of Symptoms (Recalled from Triage Doc. 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 and he started feeling sore after feels like he may have over done it and wore himself out States that in the middle of the night he started with body aches, chills, nasal congestion a little SOA at times and over all not feeling well States he got up this morning and took his morning meds and was still not feeling well so he came in to get checked out Related Data Home Medications Medication Instructions Recorded Confirmed gabapentin 600 mg tablet 600 mg PO TID 12/21/21 06/16/23 hydrocodone 7.5 mg-acetaminophen 1 tab PO Q4HP PRN Pain 05/24/22 06/16/23 325 mg tablet baclofen 10 mg tablet 10 mg PO DAILY 06/16/23 06/16/23 buspirone 10 mg tablet 10 mg PO DAILY 06/16/23 06/16/23 lamotrigine 100 mg tablet 100 mg PO DAILY 06/16/23 06/16/23 prednisone 20 mg tablet 20 mg PO TID 06/16/23 06/16/23 Previous Rx's Medication Instructions Recorded lisinopril 20 mg tablet 20 mg PO DAILY . #90 tabs 03/29/23 Allergies Allergy/AdvReac Type Severity Reaction Status Date / Time levetiracetam [From Kera] Allergy Severe suicidal Verified 04/19/23 11:07 thoughts amoxicillin Allergy Verified 04/19/23 11:07 Penicillins Allergy Verified 04/19/23 11:07 Worker's Comp Is this a Worker's Comp case?: No [facility] Disclaimer: The information contained in this section may have been updated after the patient was seen, as this information can be updated by other users. Medical History Generalized anxiety disorder Hypertension Recurrent major depression resistant to treatment Seizure disorder Social History Smoking Status: Current every day smoker tobacco type: cigarettes packs per day: 1 second hand exposure: No alcohol intake: current substance use type: denies use current occupational status: unemployed Travel in the last 8 weeks: None household members: significant other housing: house number of children: 1 current occupational exposures/hazards: No caffeine: Yes ROS Obtained: Yes All systems reviewed & no additional complaints except as documented and Yes Systems reviewed as appropriate & no additional complaints except as documented Constitutional Constitutional: Reports system reviewed and no additional complaints, except as documented, Reports as per HPI, Reports body ache, Reports chills, Reports fatigue, Reports fever(s) (felt like he may have had one) and Reports headache(s) (last night) ENT Ears, Nose, Mouth, and Throat: Reports system reviewed and no additional complaints, except as documented, Reports as per HPI, Reports dizziness (at times), Reports headache(s) (last night), Reports nasal congestion and Reports sore throat Cardiovascular Cardiovascular: Reports system reviewed and no additional complaints, except as documented and Reports as per HPI Respiratory Respiratory: Reports system reviewed and no additional complaints, except as documented, Reports as per HPI, Reports shortness of breath (at times), Denies chest congestion, Denies cough, Denies pain on inspiration and Denies pain with cough Gastrointestinal Gastrointestingal: Reports system reviewed and no additional complaints, except as documented and as per HPI Neurologic Neurologic: Reports dizziness (at times) and Reports headache(s) (last night) Endocrine Endocrine: Reports fatigue Physical Exam General General appearance: alert and in no apparent distress ENT ENT exam: Present mucous membranes moist Expanded ENT Exam Nose exam: Absent sinus tenderness (reports clear drainage with nasal congestion) Throat exam: Present other (Pharyngeal erythema noted with PND) Chest Chest inspection: Present normal inspection and symmetric chest wall rise Respiratory Respiratory exam: Present normal lung sounds bilaterally; Absent respiratory distress or wheezes Cardiovascular Cardiovascular exam: Present regular rate, normal rhythm and tachycardia Abdominal Exam Abdominal exam: Present soft and normal bowel sounds; Absent distention or tenderness Neurological Exam Neurological exam: Present alert and oriented X3 Medical Decision Making Claudy Inquiry Pt receiving controlled substance: No Claudy was queried for this patient: No Vital Signs: 06/16/23 10:00 Temperature 98.4 F Temperature Source Oral Pulse Rate [Right Brachial] 116 H Respiratory Rate 24 Blood Pressure [Right Arm] 99/56 L Blood Pressure Mean [Right Arm] 70 Blood Pressure Source [Right Arm] Automatic Cuff Blood Pressure Position [Right Arm] Sitting 02 Sat by Pulse Oximetry 95 Oxygen Delivery Method Room Air Lab Data Lab results reviewed: Yes I reviewed the patient's lab results. Medical Decision Narrative: Discussed with patient and recommended transfer to the ED for more extensive work up and evaluation and patient declined at this time States he feels like he over did it at work and just wants a day off to rest Discussed with patient risks and again recommended more extensive work up due to blood pressure being 99/56 and he declined again states that if he gets feeling worse he will return to the ED Patient given strict return precautions Again spoke with patient about transfer to the ED for lab work and furhter work up and he declined Patient given strict return precautions to the ED
[2023-06-16 10:26] LABS: UTC Influenza A Antigen Negative (Negative); UTC Influenza B Antigen Negative (Negative)
[2023-06-16 10:34] LABS: Adenovirus,PCR Not Detected (NotDetected); Coronavirus 19, PCR Not Detected (NotDetected); Coronavirus 229E Not Detected (NotDetected); Coronavirus NL63 Not Detected (NotDetected); Coronavirus OC43 Not Detected (NotDetected); Coronovirus HKU1,PCR Not Detected (NotDetected); Human Metapneumovirus Not Detected (NotDetected); Influenza A, PCR Not Detected (NotDetected); Influenza AH1, 2009 Not Detected (NotDetected); Influenza AH1, PCR Not Detected (NotDetected); Influenza AH3,PCR Not Detected (NotDetected); Influenza B, PCR Not Detected (NotDetected); Parainfluenza 1, PCR Not Detected (NotDetected); Parainfluenza 2, PCR Not Detected (NotDetected); Parainfluenza 3, PCR Not Detected (NotDetected); Parainfluenza 4, PCR Not Detected (NotDetected); Respiratory Syncytial Virus Not Detected (NotDetected); Rhinovirus/Enterovirus Not Detected (NotDetected)
[2023-06-16 10:54] VITALS: BP 99/56; PULSE 116; RESP 24; TEMP 36.9; O2SAT 95
[2023-06-16 19:05] LABS: UTC Strep Screen (Rapid) Negative (Negative)
== END 2023-06-16 11:03 | disposition home or self-care (01) ==
PROVIDERS: Emergency Provider Nurse Practitioner; PCP Nurse Practitioner Family
DX: R06.02 Shortness of breath (principal); R51.9 Headache, unspecified; R42 Dizziness and giddiness; R09.81 Nasal congestion; R53.83 Other fatigue; R07.0 Pain in throat; M79.18 Myalgia, other site; B34.9 Viral infection, unspecified; F17.210 Nicotine dependence, cigarettes, uncomplicated; I10 Essential (primary) hypertension; G40.909 Epilepsy, unspecified, not intractable, without status epilepticus
CPT/HCPCS: 87632; 87635; 87804; 87880; 99212; 99214; G0463

== ENCOUNTER 2023-08-31 17:52 | Emergency (ER) | payer MEDICARE, BC, SELFPAY ==
[2023-08-31 17:54] VITALS: BP 124/77; PULSE 80; RESP 18; TEMP 36.6; O2SAT 100; BMI 26.6
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
[2023-08-31 18:31] VITALS: BP 128/88; PULSE 71; O2SAT 97
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
[2023-08-31] MEDS: ACETAMINOPHEN 500MG TAB 1000 MG PO (18:55)
[2023-08-31] MEDS: KETOROLAC 30MG/ML VIAL 60 MG IM (18:59)
[2023-08-31 19:29] VITALS: BP 121/76; PULSE 68; O2SAT 98
[2023-08-31 19:52] VITALS: BP 121/76; PULSE 65; RESP 18; TEMP 36.6; O2SAT 97
== END 2023-08-31 19:50 | disposition home or self-care (01) ==
PROVIDERS: Emergency Provider Student in an Organized Health Care Education/Training Program; PCP Physician Assistant
DX: M54.2 Cervicalgia (principal); V49.40XA Driver injured in collision with unspecified motor vehicles in traffic accident, initial encounter; Y92.410 Unspecified street and highway as the place of occurrence of the external cause
CPT/HCPCS: 72125; 96372; 99284

== ENCOUNTER 2023-12-29 11:53 | Emergency (ER) | payer MEDICARE, SELFPAY ==
[2023-12-29 12:17] VITALS: BP 124/92; PULSE 87; RESP 16; TEMP 36.6; O2SAT 98; BMI 22.8
--- NOTE | 2023-12-29 12:20 | ED_ITS ---
Discharge Plan Disposition Patient Disposition: Home, Self-Care Condition: Good Prescriptions Prescriptions: No Action cyclobenzaprine 10 mg tablet 10 mg PO Patient Comments: TAKE 1 TABLET BY MOUTH THREE TIMES DAILY NEEDED FOR MUSCLE SPASM gabapentin 600 mg tablet 600 mg PO TID hydrocodone-acetaminophen 7.5-325 mg tablet 1 tab PO Q4HP PRN (Reason: Pain) Patient Comments: TAKE 1 TABLET BY MOUTH TWICE DAILY NEEDED lisinopril 10 mg tablet 10 mg PO DAILY Qty: 30 2RF buspirone 10 mg tablet See Rx Instructions .ROUTE .COMPLEX Qty: 60 0RF Dose Instruction: TAKE 1 TABLET BY MOUTH TWICE DAILY Rx Instructions: TAKE 1 TABLET BY MOUTH TWICE DAILY baclofen 10 mg tablet 10 mg PO DAILY Referrals Follow up/Referrals: Eduardo Gillette APRN [Primary Care Provider] - See instructions Activity Restrictions/Add. Instructions Additional Instructions/Restrictions: Follow up with Neurology as scheduled they have put you on the cancelation list so if someone cancels their appointment they may be able to get you in sooner Follow up with your Family Doctor if no improvement or any worsening of symptoms Over the counter Motrin and/or Tylenol as directed Continued previous instructions per your Family Doctor Straight to ER if any life threatening symptoms Clinical Impressions Clinical Impression: Numbness and tingling in both hands Instructions Patient Instructions: DI for Hand Pain, DI for Numbness/Tingling Print Language Print Language: Armenian Discharge ED Provider: Lucia Rey [facility] HPI General Stated complaint: pain in hands Mode of Arrival: Ambulatory Source of Information: Patient Limitations: No Limitations Time Seen by Provider: 12/29/23 12:20 Description of Symptoms (Recalled from Triage Doc. by RN): Patient complaint of pins and needle feeling in bilateral hands. States he has already seen his PCP for this and was referred to neuro. States he can't drive and can't work because of this and wants to know if there is anything else we can do. HEENT Symptoms (Recalled from RN notes): No Resp Symptoms (Recalled from RN notes): No Skin Symptoms (Recalled from RN notes): No MS Symptoms (Recalled from RN notes): Yes Functional Status (Recalled from RN notes): wnl History of Present Illness Provider Complaint: Patient states that he has been having pins and needle like throbbing in bilateral hands States seen his PCP a couple days ago and was referred to Neurology but wasnt able to get in there until Feb and scheduled with pain management for latter this month but his hands are still hurting making it hard to work that he keeps dropping stuff at work States he wanted to come in today to see if there was something else that can be done or somewhere else he can go Related Data Home Medications ?Medication ?Instructions ?Recorded ?Confirmed gabapentin 600 mg tablet 600 mg PO TID 12/21/21 12/26/23 hydrocodone 7.5 mg-acetaminophen 1 tab PO Q4HP PRN Pain 05/24/22 12/26/23 325 mg tablet baclofen 10 mg tablet 10 mg PO DAILY 06/16/23 12/26/23 cyclobenzaprine 10 mg tablet 10 mg PO 12/26/23 12/26/23 Previous Rx's ?Medication ?Instructions ?Recorded buspirone 10 mg tablet See Rx Instructions .Route 08/16/23 .COMPLEX #60 tabs lisinopril 10 mg tablet 10 mg PO DAILY #30 tabs 09/05/23 Allergies Allergy/AdvReac Type Severity Reaction Status Date / Time levetiracetam [From Keppra] Allergy Severe suicidal Verified 12/26/23 12:58 thoughts amoxicillin Allergy Verified 12/26/23 12:58 Penicillins Allergy Verified 12/26/23 12:58 venlafaxine [From Effexor] Allergy Verified 12/26/23 12:58 Worker's Comp Is this a Worker's Comp case?: No [facility] Disclaimer: The information contained in this section may have been updated after the patient was seen, as this information can be updated by other users. Medical History Generalized anxiety disorder Recurrent major depression resistant to treatment Seizure disorder Hypertension Social History Smoking Status: Unknown if ever smoked second hand exposure: No alcohol intake: current alcohol intake frequency: holidays/special occasions only substance use type: denies use current occupational status: unemployed Travel in the last 8 weeks: None household members: significant other housing: house number of children: 1 current occupational exposures/hazards: No caffeine: Yes ROS Obtained: Yes All systems reviewed & no additional complaints except as documented and Yes Systems reviewed as appropriate & no additional complaints except as documented Constitutional Constitutional: Reports system reviewed and no additional complaints, except as documented and Reports as per HPI ENT Ears, Nose, Mouth, and Throat: Reports system reviewed and no additional complaints, except as documented and Reports as per HPI Cardiovascular Cardiovascular: Reports system reviewed and no additional complaints, except as documented and Reports as per HPI Respiratory Respiratory: Reports system reviewed and no additional complaints, except as documented and Reports as per HPI Gastrointestinal Gastrointestingal: Reports system reviewed and no additional complaints, except as documented and as per HPI Musculoskeletal Musculoskeletal: Reports system reviewed and no additional complaints, except as documented and Reports as per HPI Comments: pain, tingling and pins/needle feeling in bilateral hands Physical Exam General General appearance: alert and in no apparent distress ENT ENT exam: Present mucous membranes moist Respiratory Respiratory exam: Present normal lung sounds bilaterally; Absent respiratory distress or wheezes Cardiovascular Cardiovascular exam: Present regular rate, normal rhythm and normal heart sounds Expanded Upper Extremity Exam bilateral: Hand exam: Present tenderness and other (reports feeling of pins and needles and hard to hold/lift objects at work, no discoloration, no warmth no swelling noted at this time); Absent swelling, abrasion, ecchymosis, dislocation or erythema Neurological Exam Neurological exam: Present alert, oriented X3 and normal gait Medical Decision Making Claudy Inquiry Pt receiving controlled substance: No Claudy was queried for this patient: No Vital Signs: 12/29/23 12:17 Temperature 97.9 F Temperature Source Oral Pulse Rate [Radial] 87 Respiratory Rate 16 Blood Pressure [Right Arm] 124/92 H Blood Pressure Mean [Right Arm] 102 Blood Pressure Source [Right Arm] Automatic Cuff Blood Pressure Position [Right Arm] Sitting 02 Sat by Pulse Oximetry 98 Oxygen Delivery Method Room Air Medical Decision Narrative: Called and spoke with Neurology Clinic and patient is scheduled for appointment on Feb 13 at 8am States that they could add patient to cancelation list to try to get him in sooner if they have a cancelation Patient agreeable to plan States that symptoms is no better/worse since he seen PCP a few days ago was hoping he could come in and we could get him in to Neurology sooner
[2023-12-29 12:44] VITALS: BP 124/92; PULSE 87; RESP 16; TEMP 36.6; O2SAT 98
== END 2023-12-29 12:44 | disposition home or self-care (01) ==
PROVIDERS: Emergency Provider Nurse Practitioner; PCP Nurse Practitioner Family
DX: R20.2 Paresthesia of skin (principal); M62.81 Muscle weakness (generalized)
CPT/HCPCS: 99212; 99213; G0463

== ENCOUNTER 2024-02-26 13:38 | Outpatient (CLI) | payer MEDICARE, SELFPAY ==
--- NOTE | 2024-02-26 13:42 | XR_ITS ---
FINAL REPORT CLINICAL HISTORY: right wrist pain COMPARISON: None FINDINGS: RIGHT WRIST Three views demonstrate no acute fracture or dislocation. The visualized joint spaces are normally aligned. The soft tissues are unremarkable. IMPRESSION: No acute bony abnormality. Reviewed, Interpreted and Dictated by Marcus Vega MD Transcribed by Keiry Pena Authenticated and [facility]
--- NOTE | 2024-02-26 13:42 | XR_ITS ---
FINAL REPORT CLINICAL HISTORY: left wrist fx COMPARISON: None FINDINGS: LEFT WRIST Three views demonstrate no acute fracture or dislocation. The visualized joint spaces are normally aligned. The soft tissues are unremarkable. IMPRESSION: No acute bony abnormality. Reviewed, Interpreted and Dictated by Marcus Vega MD Transcribed by Keiry Pena Authenticated and [facility]
== END 2024-02-26 23:59 | disposition home or self-care (01) ==
LOC: RAD 13:40
PROVIDERS: PCP Nurse Practitioner Family; Visit Provider Orthopaedic Surgery
DX: M25.532 Pain in left wrist (principal); M25.531 Pain in right wrist
CPT/HCPCS: 73110

== ENCOUNTER 2024-03-22 11:53 | Outpatient (CLI) | payer MEDICARE, BC, SELFPAY ==
[2024-03-22 12:16] VITALS: BMI 28.0
--- NOTE | 2024-03-22 12:26 | ECG_ITS ---
APPROVED REPORT Exam: Resting ECG HR:81 bpm ECG Measurements Heart Rate 81 AXES NC 152 P 57 QRSd 97 QRS 27 QT 347 T 45 QTc 384 Conclusion SINUS RHYTHM NORMAL ECG UNCONFIRMED REPORT Electronically signed by : Merritt Gomez MD 03/24/2024 12:50:52
[2024-03-22 13:08] LABS: Chloride 104 mmol/L (98-107); Potassium 4.4 mmoL/L (3.5-5.1); Sodium 138 mmol/L (136-145)
[2024-03-22 13:11] LABS: Anion Gap 11.4 mEq/L (5-15); Blood Urea Nitrogen 9 mg/dl (9-20); Calcium 9.6 mg/dl (8.4-10.2); Carbon Dioxide 27 mmol/L (22.0-30.0); Creatinine Clearance Estimated 130 mL/min (50-200); Estimated Glomerular Filt Rate 93 ml/min (>60); GFR (African American) 112 ML/MIN (>60); Glucose 108 mg/dl (74-100)
[2024-03-22 13:13] LABS: Basophils # 0.1 K/mm3 (0-0.2); Basophils % 0.9 % (0.1-2.0); Eosinophils # 0.1 K/mm3 (0.0-0.4); Eosinophils % 1.2 % (0.1-12.0); Hematocrit 44.1 % (42.0-52.0); Hemoglobin 15.1 g/dL (14.1-18.0); Lymphocytes # 2.7 K/mm3 (0.7-4.5); Mean Corpuscular HGB Conc 34.3 g/dL (31.8-35.4); Mean Corpuscular Hemoglobin 31.3 pg (27.0-31.2); Mean Platelet Volume 8.8 fl (7.4-10.4); Monocytes # 0.5 K/mm3 (0.1-1.0); Monocytes % 5.7 % (1.7-9.3); Neutrophils # 5.5 K/mm3 (1.8-7.8); Neutrophils % 62.3 % (37.0-80.0); Platelet Count 247 K/mm3 (142-424); Red Blood Count 4.84 M/mm3 (4.60-6.20); Red Cell Distribution Width 13.6 % (11.5-17.5); White Blood Count 8.9 K/mm3 (4.8-10.8)
== END 2024-03-22 23:59 | disposition home or self-care (01) ==
LOC: PREOP 11:54
PROVIDERS: PCP Nurse Practitioner Family; Visit Provider Orthopaedic Surgery
DX: G56.00 Carpal tunnel syndrome, unspecified upper limb (principal)
CPT/HCPCS: 80048; 85025; 93005

== ENCOUNTER 2024-03-27 09:44 | Day surgery (SDC) | payer MEDICARE, BC, SELFPAY ==
[2024-03-27] VITALS (8 sets, daily range): BP systolic 99–158; BP diastolic 63–100; PULSE 78–85; RESP 16–18; TEMP 36.1–36.9; O2SAT 95–99; BMI 28.0
[2024-03-27] MEDS: LACTATED RINGERS 1000ML 1,000 ML 100 ML IV (10:29)
--- NOTE | 2024-03-27 10:56 | P.PNANES_ITS ---
[facility] Disclaimer: The information contained in this section may have been updated after the patient was seen, as this information can be updated by other users. Medical History Generalized anxiety disorder Recurrent major depression resistant to treatment Seizure disorder Hypertension Family History Other No significant family history Social History Smoking Status: Current every day smoker tobacco type: cigarettes packs per day: 1 second hand exposure: No alcohol intake: current alcohol intake frequency: holidays/special occasions only substance use type: denies use current occupational status: employed and disabled Travel in the last 8 weeks: None household members: significant other housing: house number of children: 1 current occupational exposures/hazards: No caffeine: Yes [facility] Anesthesia Checklist Patient Identification Patient Identification: Arm Band and Verbal (Name & ) Structural Data Admitted From: Home Planned Operative Procedure/s: CTR Consent for Planned Operative Procedure(s) Verified: Yes Verified Documents: Surgical Consent and History and Physical NPO Status Verified Time NPO: 00:00 Additional verifications Anesthesia Reactions: No Hx Blood Transfusions: No Blood Transfusion Reaction: No Airway Assessment Mallampati Score:: Class I C-Spine Mobility Assessed: Yes TMJ Mobility Assessed: Yes Dentition: Dentures-poor fitting (Removed) Neurological Assessment Level of Consciousness: Awake Hx Seizures: No Numbness or tingling in extremities: No Anesthesia Plan Anesthesia Risk discussed: Yes Anesthesia Plan: Verified ASA Class: II Anesthesia Type: General
[2024-03-27] MEDS: CLINDAMYCIN PHOSPHATE/D5W 900 MG/50 ML PIGGYBACK 50 MG IV (12:11)
[2024-03-27] MEDS: LIDOCAINE 1% W/EPI 1:100,000 20ML VIAL 20 ML (12:11)
--- NOTE | 2024-03-27 12:55 | EXP.OP.NOTE ---
Date of procedure: 03/27/24 Pre-op Diagnosis:: Left carpal tunnel syndrome Post-op Diagnosis:: Same Procedure performed:: Left endoscopic carpal tunnel release Surgeon:: Brooks Bowser DO CHARGING CRANE OPERATOR:: You Singh Anesthesia: LMA Estimated blood loss (mL): 0 Operative findings:: See dictation Operative note:: Patient notified preoperatively. Left wrist marked with yes and my initials. Transferred operative suite. Placed upon operating bed. General anesthesia administered and LMA placed. Left upper extremities then prepped and draped normal sterile fashion. Once prepped and draped final operative timeout performed to identify proper patient procedure and extremity. Everyone involved in the case agreed. There is no counter indications to beginning. Did receive preoperative antibiotics. Marking pen was used to terrance plan incision over the volar wrist crease. Esmarch was used to exsanguinate the extremity and pneumatic tourniquet inflated to 250 mmHg. Skin knife was used incise through skin careful dissection is taken down retractors were placed the most proximal aspect of the transverse carpal ligament was identified. And then the smaller dilator followed by the larger dilator followed by the 4.0 mm sled was placed into the carpal tunnel. Transverse carpal ligament clearly seen superiorly and the camera a probe was used to identify the most distal aspect the transverse carpal ligament rasp was used to remove the soft tissue from the undersurface. And a curved blade from the segue endoscopic carpal tunnel release was utilized to incise the transverse carpal ligament as entirety complete release visualized endoscopically. Irrigation of the wound performed. Wound closed with Monocryl Steri-Strips. Sterile hand dressing placed patient with anesthesia taken recovery stable condition. Condition: stable Disposition: PACU Complications:: None apparent
--- NOTE | 2024-03-28 12:01 | EXP.ANES.II ---
[facility] Anesthesia Record Part II Anesthesia Record Part II Discharge Time: 13:00 Destination: Surgical Day Care (OP Surgery) PACU nurse assessment reviewed?: Yes Patient Condition:: Good Anesthesia Complications:: None Swallowing reflex intact?: Yes Airway Patency: Patent Cyanosis?: No Blood Pressure: 116/65 SaO2: 99 Respiratory Rate: 18 Pulse Rate: 83 Temperature: 97.3 F Mental Status: Alert & Oriented Pain level:: 0 Nausea and/or vomitting:: None Intake, IV Amount: 0 Hydration: Adequate
[2024-03-28 12:02] VITALS: BP 116/65; PULSE 83; RESP 18; TEMP 36.3; O2SAT 99
== END 2024-03-27 13:31 | disposition home or self-care (01) ==
PROVIDERS: PCP Nurse Practitioner Family; Visit Provider Orthopaedic Surgery
PROC: (CPT 64721; principal; 2024-03-27 11:30)
DX: G56.02 Carpal tunnel syndrome, left upper limb (principal)
CPT/HCPCS: 29848; 96374; J0736; J1100; J2250; J2405; J3010; J7120

== ENCOUNTER 2024-04-17 09:53 | Day surgery (SDC) | payer MEDICARE, BC, SELFPAY ==
[2024-04-16 10:10] VITALS: BMI 27.2
[2024-04-17] VITALS (9 sets, daily range): BP systolic 106–132; BP diastolic 74–89; PULSE 72–79; RESP 16–18; TEMP 36.2–36.3; O2SAT 95–99; BMI 28.0
[2024-04-17] MEDS: LACTATED RINGERS 1000ML 1,000 ML 25 ML IV (11:48)
--- NOTE | 2024-04-17 13:04 | EXP.ANES.CKL ---
[facility] Disclaimer: The information contained in this section may have been updated after the patient was seen, as this information can be updated by other users. Medical History Generalized anxiety disorder Recurrent major depression resistant to treatment Seizure disorder Hypertension Surgical History H/O carpal tunnel repair Family History Other No significant family history Social History Smoking Status: Current every day smoker tobacco type: cigarettes packs per day: 1 second hand exposure: No alcohol intake: current alcohol intake frequency: holidays/special occasions only substance use type: denies use current occupational status: employed and disabled Travel in the last 8 weeks: None household members: significant other housing: house number of children: 1 current occupational exposures/hazards: No caffeine: Yes [facility] Anesthesia Checklist Patient Identification Patient Identification: Arm Band and Verbal (Name & ) Structural Data Admitted From: Home Planned Operative Procedure/s: RT. Endoscopic CT Release Consent for Planned Operative Procedure(s) Verified: Yes Verified Documents: Surgical Consent and History and Physical NPO Status Verified Time NPO: 22:00 Chart Verification Results Verified: CBC, BMP and ECG Additional verifications Patient : No Anesthesia Reactions: No Hx Blood Transfusions: No Blood Transfusion Reaction: No Cardiovascular Assessment Heart Sounds: S1 & S2 Pulse Rhythm: Irregular Peripheral Edema: No Airway Assessment Mallampati Score:: Class II C-Spine Mobility Assessed: Yes (Limited extension & flexion d/t cervicalgia) TMJ Mobility Assessed: Yes Dentition: Edentulous Neurological Assessment Level of Consciousness: Awake, Alert, Appropriate and Follows Commands Hx Seizures: Yes Numbness or tingling in extremities: No Anesthesia Plan Anesthesia Risk discussed: Yes Anesthesia Plan: Verified ASA Class: III Anesthesia Type: General
[2024-04-17] MEDS: CLINDAMYCIN PHOSPHATE/D5W 900 MG/50 ML PIGGYBACK 100 MG IV (13:11)
[2024-04-17] MEDS: LIDOCAINE 1% W/EPI 1:100,000 20ML VIAL 20 ML (13:31)
--- NOTE | 2024-04-17 14:06 | EXP.ANES.I ---
[facility] Anesthesia Record Part I Anesthesia Record I Intake, IV Amount: 700 Hydration: Adequate Estimated blood loss (mL): 10 Urine output (mL): 0 Blood Products used (#): none Blood Pressure: 126/77 SaO2: 97 Pulse Rate: 72 Airway Patency: Patent Respiratory Rate: 16 Temperature: 97.4 F Patient is:: Drowsy, Oral/Nasal airway (#9.[address] upon arrival to PACU. Removed at 14:10.) and Stable Stable to PACU at:: 14:07
--- NOTE | 2024-04-17 14:14 | P.OP_ITS ---
Date of procedure: 04/17/24 Pre-op Diagnosis:: Right carpal tunnel syndrome Post-op Diagnosis:: Same Procedure performed:: Right endoscopic carpal tunnel release Surgeon:: Brooks Bowser DO Cooperative Extension Agent(s):: Sina HARRINGTON SCREEN PRINTING PASTER:: Sue Andrews Anesthesia: LMA Estimated blood loss (mL): 0 Operative findings:: See dictation Operative note:: Patient identified preoperatively. Right wrist marked with a yes and my initials. Taken the operating suite placed spinal operating bed with a hand table right upper extremity prepped and draped in normal sterile fashion. Once prepped and draped final operative timeout performed to identify proper patient procedure and extremity. Everyone involved in the case agreed. There is no counter indications to beginning. Did receive preoperative antibiotics. Marking pen was used to make plan incision over the volar wrist crease Esmarch was used to exsanguinate the extremity pneumatic tourniquet inflated to 250 mmHg.. Skin knife used incise skin careful dissection taken down bluntly to identify the most proximal aspect of the transverse carpal ligament once identified it was entered with the smaller dilator followed by the larger dilator followed by the 4.0 mm sled into the carpal tunnel the camera was placed into the sled transverse carpal ligament clearly seen superiorly within the camera the hook was used to identify the most distal aspect of the transverse carpal ligament rasp was used to remove soft tissue from the undersurface and then the hook plate from the 8 Securitiesue endoscopic carpal tunnel system was utilized to release transverse carpal ligament is clearly seen on the camera. Sled was removed irrigation wound performed skin closed with buried Monocryl and Steri- Strips sterile hand dressing placed patient awaken anesthesia taken recovery stable condition. Condition: stable Disposition: PACU Complications:: None apparent
--- NOTE | 2024-04-18 08:08 | P.PNANES_ITS ---
[facility] Anesthesia Record Part II Anesthesia Record Part II Discharge Time: 14:32 Destination: Surgical Day Care (OP Surgery) PACU nurse assessment reviewed?: Yes Patient Condition:: Good Anesthesia Complications:: None Swallowing reflex intact?: Yes Airway Patency: Patent Cyanosis?: No Blood Pressure: 123/89 SaO2: 96 Respiratory Rate: 16 Pulse Rate: 74 Temperature: 97.4 F Mental Status: Alert & Oriented Pain level:: 0 Nausea and/or vomitting:: None Intake, IV Amount: 700 Hydration: Adequate
[2024-04-18 08:09] VITALS: BP 123/89; PULSE 74; RESP 16; TEMP 36.3; O2SAT 96
== END 2024-04-17 15:00 | disposition home or self-care (01) ==
PROVIDERS: PCP Nurse Practitioner Family; Visit Provider Orthopaedic Surgery
PROC: (CPT 64721; principal; 2024-04-17 11:30)
DX: G56.01 Carpal tunnel syndrome, right upper limb (principal)
CPT/HCPCS: 29848; 96374; J0736; J1100; J1885; J2250; J2405; J3010; J7120